=== PATIENT | female | born 1960 | race Caucasian/White ===

== ENCOUNTER → 2017-06-16 | Outpatient (CLI) | payer BC, SELFPAY | PROVIDERS: Family Provider Family Medicine; PCP Family Medicine; Visit Provider Family Medicine | DX: Z12.31 Encounter for screening mammogram for malignant neoplasm of breast (principal) | CPT/HCPCS: 77067; G0202 ==

== ENCOUNTER → 2020-02-24 08:03 | Outpatient (CLI) | payer BC, SELFPAY ==
--- NOTE | 2020-02-24 08:07 | MM_ITS ---
PROCEDURE: MM DIG SCREENING MAMM BI W/CAD Digital Breast Tomosynthesis Included CLINICAL INDICATION: SCREENING There is no personal or family history of breast cancer. COMPARISON: MG AB MAMM SCREEN BILAT DIG PNL from 06/01/2014 MG PB MAMM SCREEN BILAT DIG PNL from 06/12/2015 MG DMSB DIG MAMM-SCREEN RASHIDA W/CAD from 06/16/2017 TECHNIQUE: Standard CC and MLO images and 3D Tomosynthesis was obtained. R2 CAD reviewed. FINDINGS: Mild scattered fibroglandular densities are seen throughout both breast and the findings are bilateral and symmetrical. There is no new or suspicious lesion in either breast and no suspicious microcalcifications. IMPRESSION: Fibrofatty parenchyma with no suspicious lesions seen BI-RAD Category: 1 Negative FOLLOW-UP: 1YR 1 Year Follow-up (A letter has been sent to the patient regarding results of the study.) Dictated by: Dr. Gio Mack MD 02/24/2020 10:56 Dr. Gio Mack MD in [place] 02/24/2020 10:56
== END ==
PROVIDERS: PCP Family Medicine; Visit Provider Family Medicine
DX: Z12.31 Encounter for screening mammogram for malignant neoplasm of breast (principal)
CPT/HCPCS: 77063; 77067

== ENCOUNTER → 2021-04-28 09:14 | Outpatient (CLI) | payer BC, SELFPAY ==
[2021-04-28 10:03] LABS: Coronavirus 19, PCR Not Detected (NotDetected); Influenza A, PCR Not Detected (NotDetected); Influenza B, PCR Not Detected (NotDetected)
== END ==
PROVIDERS: PCP Family Medicine; Visit Provider Physician Assistant
DX: Z20.822 Contact with and (suspected) exposure to COVID-19 (principal)
CPT/HCPCS: C9803; U0003; U0005

== ENCOUNTER → 2021-05-01 13:23 | Outpatient (CLI) | payer BC, SELFPAY | PROVIDERS: PCP Psychiatry & Neurology Sleep Medicine; Visit Provider Nurse Practitioner | DX: Z20.822 Contact with and (suspected) exposure to COVID-19 (principal) ==

== ENCOUNTER → 2021-05-01 13:48 | Outpatient (CLI) | payer BC, SELFPAY ==
[2021-05-01 14:01] LABS: Coronavirus 19, PCR Not Detected (NotDetected); Influenza A, PCR Not Detected (NotDetected); Influenza B, PCR Not Detected (NotDetected)
== END ==
PROVIDERS: Visit Provider Nurse Practitioner
DX: Z20.822 Contact with and (suspected) exposure to COVID-19 (principal)
CPT/HCPCS: C9803; U0003; U0005

== ENCOUNTER → 2021-05-17 15:02 | Outpatient (CLI) | payer BC, SELFPAY ==
--- NOTE | 2021-05-17 15:06 | MM_ITS ---
PROCEDURE INFORMATION: Exam: MG Bilateral Screening 3D Mammography Exam date and time: 05/17/2021 3:06 PM Age: 60 years old Clinical indication: Encounter for screening mammogram for malignant neoplasm of breast TECHNIQUE: Imaging protocol: Bilateral screening tomosynthesis and 2D mammography including computer-aided detection (CAD) when performed. COMPARISON: 1. MG MM DIG SCREENING MAMM BI W/CAD 02/24/2020 8:19 AM 2. MG DMSB DIG MAMM-SCREEN RASHIDA W/CAD 06/16/2017 10:09 AM FINDINGS: MAMMOGRAPHY: Breast composition: The breast tissue is composed of scattered areas of fibroglandular density. Mass: None. Architectural distortion: None. Calcifications: No suspicious calcifications. Asymmetric density: None. Skin thickening: None. Axillary adenopathy: None. IMPRESSION: No mammographic evidence of malignancy. Annual screening is recommended unless otherwise clinically indicated. ASSESSMENT: BI-RADS Category 1: Negative
== END ==
PROVIDERS: PCP Family Medicine; Visit Provider Family Medicine
DX: Z12.31 Encounter for screening mammogram for malignant neoplasm of breast (principal)
CPT/HCPCS: 77063; 77067

== ENCOUNTER → 2021-05-23 15:40 | Outpatient (CLI) | payer BC, SELFPAY | PROVIDERS: PCP Physician Assistant; Visit Provider Physician Assistant | DX: Z20.822 Contact with and (suspected) exposure to COVID-19 (principal) | CPT/HCPCS: C9803; U0003; U0005 ==

== ENCOUNTER → 2021-05-25 08:05 | Outpatient (CLI) | payer BC, SELFPAY ==
[2021-05-25 08:40] LABS: Coronavirus 19, PCR Not Detected (NotDetected); Influenza A, PCR Not Detected (NotDetected); Influenza B, PCR Not Detected (NotDetected)
[2021-05-25 12:45] LABS: Basophils # 0.1 K/mm3 (0-0.2); Basophils % 0.6 % (0.1-2.0); Eosinophils # 0.4 K/mm3 (0.0-0.4); Eosinophils % 4.8 % (0.1-12.0); Hematocrit 42.6 % (37.0-47.0); Lymphocytes # 1.8 K/mm3 (0.7-4.5); Lymphocytes % 21.7 % (10-50); Mean Corpuscular HGB Conc 32.8 g/dL (31.8-35.4); Mean Corpuscular Hemoglobin 29.5 pg (27.0-31.2); Mean Corpuscular Volume 89.8 fl (81-99); Mean Platelet Volume 9.6 fl (7.4-10.4); Monocytes # 0.4 K/mm3 (0.1-1.0); Monocytes % 4.8 % (1.7-9.3); Neutrophils # 5.7 K/mm3 (1.8-7.8); Platelet Count 213 K/mm3 (142-424); Red Blood Count 4.74 M/mm3 (4.20-5.40); White Blood Count 8.4 K/mm3 (4.8-10.8)
== END ==
PROVIDERS: PCP Family Medicine; Visit Provider Family Medicine
DX: Z20.822 Contact with and (suspected) exposure to COVID-19 (principal)
CPT/HCPCS: 85025; C9803; U0003; U0005

== ENCOUNTER → 2021-05-28 08:08 | Outpatient (CLI) | payer BC, SELFPAY | PROVIDERS: PCP Family Medicine; Visit Provider Family Medicine | DX: Z20.822 Contact with and (suspected) exposure to COVID-19 (principal) | CPT/HCPCS: C9803; U0003; U0005 ==

== ENCOUNTER → 2021-05-31 14:23 | Outpatient (CLI) | payer BC, SELFPAY ==
[2021-05-31 14:45] LABS: Adenovirus,PCR Not Detected (NotDetected); Bordetella Pertussis Not Detected (NotDetected); Chlamydophila Pneumoniae, PCR Not Detected (NotDetected); Coronavirus 19, PCR Not Detected (NotDetected); Coronavirus 229E Not Detected (NotDetected); Coronavirus NL63 Not Detected (NotDetected); Coronavirus OC43 Not Detected (NotDetected); Coronovirus HKU1,PCR Not Detected (NotDetected); Human Metapneumovirus Not Detected (NotDetected); Influenza A, PCR Not Detected (NotDetected); Influenza AH1, 2009 Not Detected (NotDetected); Influenza AH1, PCR Not Detected (NotDetected); Influenza AH3,PCR Not Detected (NotDetected); Influenza B, PCR Not Detected (NotDetected); Mycoplasma Pneumoniae, PCR Not Detected (NotDetected); Parainfluenza 1, PCR Not Detected (NotDetected); Parainfluenza 2, PCR Not Detected (NotDetected); Parainfluenza 3, PCR Not Detected (NotDetected); Parainfluenza 4, PCR Not Detected (NotDetected); Respiratory Syncytial Virus Not Detected (NotDetected); Rhinovirus/Enterovirus Not Detected (NotDetected)
== END ==
PROVIDERS: PCP Family Medicine; Visit Provider Family Medicine
DX: Z20.822 Contact with and (suspected) exposure to COVID-19 (principal)
CPT/HCPCS: 87581; 87632; 87798; C9803; U0003; U0005

== ENCOUNTER → 2021-06-03 16:48 | Outpatient (CLI) | payer BC, SELFPAY ==
--- NOTE | 2021-06-03 17:03 | XR_ITS ---
PROCEDURE INFORMATION: Exam: XR Chest Exam date and time: 06/03/2021 5:03 PM Age: 60 years old Clinical indication: Screening exam; Other screening; Patient HX: Covid screening, chest pain. TECHNIQUE: Imaging protocol: XR of the chest. Views: 1 view. Total images: 1 COMPARISON: No relevant prior studies available. FINDINGS: Lungs: Low lung volumes. Pulmonary vasculature grossly normal. No gross pulmonary infiltrates or edema pattern. Minimal linear stranding in the lung bases, likely subsegmental atelectasis. Pleural spaces: No pleural effusion. No pneumothorax. Heart/Mediastinum: Heart size normal. No tracheal/mediastinal shift. Bones/joints: No acute osseous abnormalities are identified. IMPRESSION: 1. No acute thoracic process. No gross pulmonary infiltrates 2. Low lung volumes with mild linear subsegmental atelectasis in the lung bases.
[2021-06-03 18:01] LABS: Basophils # 0.1 K/mm3 (0-0.2); Basophils % 0.6 % (0.1-2.0); Eosinophils # 0.6 K/mm3 (0.0-0.4); Eosinophils % 2.9 % (0.1-12.0); Hematocrit 47.7 % (37.0-47.0); Hemoglobin 15.6 g/dL (12.2-16.2); Lymphocytes # 4.6 K/mm3 (0.7-4.5); Lymphocytes % 23.1 % (10-50); Mean Corpuscular HGB Conc 32.7 g/dL (31.8-35.4); Mean Corpuscular Volume 88.6 fl (81-99); Mean Platelet Volume 7.9 fl (7.4-10.4); Monocytes # 0.9 K/mm3 (0.1-1.0); Monocytes % 4.6 % (1.7-9.3); Neutrophils # 13.6 K/mm3 (1.8-7.8); Neutrophils % 68.8 % (37.0-80.0); Platelet Count 321 K/mm3 (142-424); Red Blood Count 5.39 M/mm3 (4.20-5.40); White Blood Count 19.8 K/mm3 (4.8-10.8)
[2021-06-03 18:09] LABS: D-Dimer 0.44 ug/mL (0.0-0.5)
[2021-06-03 18:18] LABS: MANUAL DIFFERENTIAL MANUAL DIFFERENTIAL (MANUAL DIFF)
[2021-06-03 19:10] LABS: Eosinophils % 1 % (0-3); Lymphocytes % 24 % (10-50); Monocytes % 7 % (2-9); Neutrophils % 68 % (42-76); Platelet Estimate Normal; Total Cells Counted 100
== END ==
PROVIDERS: PCP Family Medicine; Visit Provider Nurse Practitioner
DX: Z20.822 Contact with and (suspected) exposure to COVID-19 (principal)
CPT/HCPCS: 36415; 71045; 85007; 85025; 85378

== ENCOUNTER → 2021-06-06 11:16 | Outpatient (CLI) | payer BC, SELFPAY | PROVIDERS: PCP Family Medicine; Visit Provider Family Medicine | DX: Z20.822 Contact with and (suspected) exposure to COVID-19 (principal) | CPT/HCPCS: C9803; U0003; U0005 ==

== ENCOUNTER → 2021-10-18 08:06 | Outpatient (CLI) | payer BC, SELFPAY ==
--- NOTE | 2021-10-18 08:11 | CT_ITS ---
FINAL REPORT TECHNIQUE: After the administration of oral and intravenous contrast, axial images were obtained through the abdomen and pelvis by computed tomography. The study was performed with techniques to keep radiation dose as low as reasonably achievable, (ALARA). Individual dose reduction techniques using automated exposure control or adjustment of mA and/or kV according to the patient's size were employed. CLINICAL HISTORY: RIGHT UPPER QUADRANT PAIN FINDINGS: Abdomen: There is atelectasis in the lung bases. The liver parenchyma is mildly fatty infiltrated. The gallbladder is surgically absent. The spleen, pancreas, adrenals and kidneys appear unremarkable. The aorta is normal in caliber. There is no free fluid or adenopathy. Pelvis: The appendix is normal. The urinary bladder is unremarkable. There is no free fluid or adenopathy. The uterus lies eccentric to the right. IMPRESSION: No acute intra-abdominal process. Reviewed, Interpreted and Dictated by Pepe Choudhary MD Transcribed by Jean Pierre Garcia Authenticated by Pepe Choudhary MD on 10/18/2021 09:18:42 AM [facility]
== END ==
PROVIDERS: PCP Family Medicine; Visit Provider Family Medicine
DX: R10.11 Right upper quadrant pain (principal)
CPT/HCPCS: 74177; Q9967

== ENCOUNTER → 2021-11-25 11:36 | Outpatient (CLI) | payer BC, SELFPAY | PROVIDERS: PCP Family Medicine; Visit Provider Family Medicine | DX: U07.1 COVID-19 (principal) | CPT/HCPCS: C9803; U0003; U0005 ==

== ENCOUNTER → 2021-12-02 07:35 | Outpatient (CLI) | payer BC, SELFPAY ==
--- NOTE | 2021-12-02 | ECG_ITS ---
APPROVED REPORT Exam: Resting ECG HR:68 bpm ECG Measurements Heart Rate 68 AXES OH 164 P 45 QRSd 88 QRS -5 QT 358 T 54 QTc 376 Conclusion SINUS RHYTHM LEFT VENTRICULAR HYPERTROPHY AND ST-T CHANGE [VOLTAGE CRITERIA PLUS ST/T ABNORMALITY] ABNORMAL ECG UNCONFIRMED REPORT Electronically signed by : Yan Fragoso MD 12/03/2021 22:19:49
[2021-12-02 08:07] LABS: Basophils # 0.1 K/mm3 (0-0.2); Basophils % 1.2 % (0.1-2.0); Eosinophils # 0.4 K/mm3 (0.0-0.4); Eosinophils % 4.5 % (0.1-12.0); Hematocrit 43.5 % (37.0-47.0); Hemoglobin 14.3 g/dL (12.2-16.2); Lymphocytes % 25.8 % (10-50); Mean Corpuscular Hemoglobin 29.4 pg (27.0-31.2); Mean Platelet Volume 8.9 fl (7.4-10.4); Monocytes # 0.5 K/mm3 (0.1-1.0); Monocytes % 5.8 % (1.7-9.3); Neutrophils # 4.9 K/mm3 (1.8-7.8); Neutrophils % 62.7 % (37.0-80.0); Platelet Count 192 K/mm3 (142-424); Red Blood Count 4.88 M/mm3 (4.20-5.40); Red Cell Distribution Width 13.6 % (11.5-17.5); White Blood Count 7.9 K/mm3 (4.8-10.8)
[2021-12-02 08:43] LABS: Chloride 105 mmol/L (98-107); Sodium 137 mmol/L (136-145)
[2021-12-02 08:44] LABS: Potassium 4.3 mmoL/L (3.5-5.1)
[2021-12-02 08:46] LABS: Alanine Aminotransferase 58 U/L (12-78); Albumin/Globulin Ratio 1.5 (1.1-1.8); Alkaline Phosphatase 115 U/L (38-126); Anion Gap 11.3 mEq/L (5-15); Aspartate Amino Transferase 49 U/L (14-36); Bilirubin,Total 0.7 mg/dl (0.2-1.3); Blood Urea Nitrogen 13 mg/dl (7-17); Carbon Dioxide 25 mmol/L (22.0-30.0); Estimated Glomerular Filt Rate 125 ml/min (>60); GFR (African American) 152 ML/MIN (>60); Globulin 2.6 g/dL (1.3-3.2); Total Protein,Serum 6.6 g/dl (6.3-8.2)
[2021-12-02 08:47] LABS: Calcium 9.2 mg/dl (8.4-10.2); Glucose 285 mg/dl (74-100)
== END ==
PROVIDERS: PCP Family Medicine; Visit Provider Otolaryngology
DX: Z01.818 Encounter for other preprocedural examination (principal)
CPT/HCPCS: 36415; 80053; 85025; 93005

== ENCOUNTER → 2022-07-29 15:43 | Outpatient (CLI) | payer BC, SELFPAY ==
--- NOTE | 2022-07-29 15:46 | MM_ITS ---
PROCEDURE INFORMATION: Exam: MG Bilateral Screening 3D Mammography Exam date and time: 07/29/2022 3:46 PM Age: 61 years old Clinical indication: Screening. No family history of breast cancer. TECHNIQUE: Imaging protocol: Bilateral Screening tomosynthesis and 2D mammography including computer-aided detection (CAD) when performed. COMPARISON: 1. MG MM DIG SCREENING MAMM BI W/CAD 05/17/2021 3:00 PM 2. MG MM DIG SCREENING MAMM BI W/CAD 02/24/2020 8:19 AM 3. MG DMSB DIG MAMM-SCREEN RASHIDA W/CAD 06/16/2017 10:09 AM 4. MG PB MAMM SCREEN BILAT DIG PNL 06/12/2015 8:45 AM FINDINGS: MAMMOGRAPHY: Breast composition: There are scattered areas of fibroglandular density. Mass: None. Architectural distortion: None. Calcifications: No suspicious calcifications. Asymmetric density: None. Skin thickening: None. Axillary adenopathy: None. IMPRESSION: No mammographic evidence of malignancy. Annual screening is recommended unless otherwise clinically indicated. ASSESSMENT: BI-RADS Category 1: Negative
== END ==
PROVIDERS: PCP Family Medicine; Visit Provider Family Medicine
DX: Z12.31 Encounter for screening mammogram for malignant neoplasm of breast (principal)
CPT/HCPCS: 77063; 77067

== ENCOUNTER → 2022-08-28 17:46 | Outpatient (CLI) | payer BC, SELFPAY ==
--- NOTE | 2022-08-28 17:56 | XR_ITS ---
PROCEDURE INFORMATION: Exam: XR Chest Exam date and time: 08/28/2022 5:52 PM Age: 61 years old Clinical indication: Cough and shortness of breath; Patient HX: C/O chronic cough x 1 wk TECHNIQUE: Imaging protocol: Radiologic exam of the chest. Views: 2 views. COMPARISON: CR XR CHEST PORTABLE 06/03/2021 5:10 PM FINDINGS: Lungs: Unremarkable. No consolidation. Pleural spaces: Unremarkable. No pleural effusion. No pneumothorax. Heart/Mediastinum: Unremarkable. No cardiomegaly. Bones/joints: Unremarkable. IMPRESSION: No acute findings.
== END ==
LOC: RAD 17:47
PROVIDERS: PCP Family Medicine; Visit Provider Physician Assistant
DX: R06.02 Shortness of breath (principal); R05.9 Cough, unspecified
CPT/HCPCS: 71046

== ENCOUNTER → 2023-02-25 07:59 | Outpatient (CLI) | payer BC, SELFPAY ==
[2023-02-25 08:41] LABS: Coronavirus 19, PCR Not Detected (NotDetected); Influenza A, PCR Not Detected (NotDetected); Influenza B, PCR Not Detected (NotDetected)
== END ==
PROVIDERS: PCP Family Medicine; Visit Provider Physician Assistant
DX: Z20.822 Contact with and (suspected) exposure to COVID-19 (principal)
CPT/HCPCS: 87636

== ENCOUNTER 2023-10-21 09:00 | Outpatient (CLI) | payer BC, SELFPAY ==
--- NOTE | 2023-10-21 09:06 | MM_ITS ---
PROCEDURE INFORMATION: Exam: MG Bilateral Screening 3D Mammography Exam date and time: 10/21/2023 9:30 AM Age: 63 years old Clinical indication: Screening. No family history of breast cancer. TECHNIQUE: Imaging protocol: Bilateral Screening tomosynthesis and 2D mammography including computer-aided detection (CAD) when performed. COMPARISON: 1. MG MM DIG SCREENING MAMM BI W/CAD 07/29/2022 3:46 PM 2. MG MM DIG SCREENING MAMM BI W/CAD 05/17/2021 3:00 PM 3. MG MM DIG SCREENING MAMM BI W/CAD 02/24/2020 8:19 AM 4. MG DMSB DIG MAMM-SCREEN RASHIDA W/CAD 06/16/2017 10:09 AM FINDINGS: MAMMOGRAPHY: Breast composition: There are scattered areas of fibroglandular density. Mass: None. Architectural distortion: None. Calcifications: No suspicious calcifications. Asymmetric density: None. Skin thickening: None. Axillary adenopathy: None. IMPRESSION: No mammographic evidence of malignancy. Annual screening is recommended unless otherwise clinically indicated. ASSESSMENT: BI-RADS Category 1: Negative
--- NOTE | 2023-10-21 09:06 | XR_ITS ---
FINAL REPORT TECHNIQUE: Bone mineral density was calculated of the lumbar spine and hip. CLINICAL HISTORY: .POST MENOPAUSAL COMPARISON: None FINDINGS: Using L1-4, the bone mineral density of the spine is 1.181 g/cm2, corresponding to T-score of 1.2. Using the left hip, the bone mineral density of the femoral neck is 0.830 g/cm2, corresponding to a T-score of -0.3. Using the right hip, the bone mineral density of the femoral neck is 0.825 g/cm?, corresponding to a T-score of -0.2. NOTE: T-score: Standard deviation compared with peak bone mass of young adult mean. *Following the recommendations of the International Society of Bone densitometry, classification of hip BMD is based on the lower of two T-scores; total hip or femoral neck. IMPRESSION: Normal bone mineral density of the lumbar spine and bilateral hips. Reviewed, Interpreted and Dictated by Eryn Henry MD Transcribed by Sonal Montano Authenticated and [facility]
== END 2023-10-21 23:59 | disposition home or self-care (01) ==
LOC: RAD 09:01
PROVIDERS: PCP Family Medicine; Visit Provider Family Medicine
DX: Z12.31 Encounter for screening mammogram for malignant neoplasm of breast (principal); Z78.0 Asymptomatic menopausal state
CPT/HCPCS: 77063; 77067; 77080

== ENCOUNTER 2024-07-16 11:00 | Outpatient (CLI) | payer BC, SELFPAY ==
[2024-07-16 11:10] LABS: Adenovirus,PCR Not Detected (NotDetected); Bordetella Pertussis Not Detected (NotDetected); Chlamydophila Pneumoniae, PCR Not Detected (NotDetected); Coronavirus 19, PCR Not Detected (NotDetected); Coronavirus 229E Not Detected (NotDetected); Coronavirus NL63 Not Detected (NotDetected); Coronavirus OC43 Not Detected (NotDetected); Coronovirus HKU1,PCR Not Detected (NotDetected); Human Metapneumovirus Not Detected (NotDetected); Influenza A, PCR Not Detected (NotDetected); Influenza AH1, 2009 Not Detected (NotDetected); Influenza AH1, PCR Not Detected (NotDetected); Influenza AH3,PCR Not Detected (NotDetected); Influenza B, PCR Not Detected (NotDetected); Mycoplasma Pneumoniae, PCR Not Detected (NotDetected); Parainfluenza 1, PCR Not Detected (NotDetected); Parainfluenza 2, PCR Not Detected (NotDetected); Parainfluenza 3, PCR Not Detected (NotDetected); Parainfluenza 4, PCR Not Detected (NotDetected); Respiratory Syncytial Virus Not Detected (NotDetected); Rhinovirus/Enterovirus Not Detected (NotDetected)
== END 2024-07-16 23:59 | disposition home or self-care (01) ==
LOC: LAB 11:02
PROVIDERS: PCP Family Medicine; Visit Provider Family Medicine
DX: J06.9 Acute upper respiratory infection, unspecified (principal)
CPT/HCPCS: 87633

== ENCOUNTER 2024-10-26 15:47 | Outpatient (CLI) | payer BC, SELFPAY ==
--- OUTSIDE RECORDS SUMMARY | 2024-10-26 15:49 | XMS_ITS | Data Portability ---
Author Organization [facility] [place] [facility] Address [address] [facility] [place] [address] Care Team Providers Care Manufacturer'S Service Representative Name Role Phone Iwona GALVAN Primary Care Provider [phone] Assessment No assessment recorded. Plan of Treatment Reminders Order Date Submit Date Provider Last Modified By Organization Details Last Modified Time Details Appointments None recorded. Lab None recorded. Referral None recorded. Procedures None recorded. Surgeries None recorded. Imaging None recorded. Medication Orders ofloxacin 0.3 % ear drops 2021 [email or web address] [place] [address] Pharmacy [facility], [address] [facility] [address] [facility] [place], [place], [id number], 09:21:47 Patient TargetsNo targets recorded. Patient Instructions Encounter Date Encounter Id Patient Instructions Last Modified By Organization Details Last Modified Time 07/21/2017 [id number] . Her left ear t ube continues to function well and both tympanic membranes look clear and healthy. We will see her once a year but she will return sooner if symptoms worsen. Not available 07/21/2017 14:43:59 08/16/2019 [id number] 1. Left cerumenectomy- full risks, complications, and benefits of in-office procedure have been thoroughly discussed. Understanding was expressed, informed consent given, and we will proceed with the discussed in-office treatment plan. 2. F/u 1 year [email or web address] Not available 08/16/2019 14:24:10 Her left ear tub e is still in good position and functioning well. Cerumen and squamous debris buildup around the tube was cleaned today under the operating microscope. She has no evidence of cholesteatoma formation. Her eustachian tube dysfunction is well treated with the ear tube. I should see her yearly for routine exam and cleaning. She wears her hearing aid successfully. Not available 08/16/2019 14:27:31 09/17/2021 [id number] 1. Left ear ceru men removal- full risks, complications, and benefits of in-office procedure have been thoroughly discussed. Understanding was expressed, informed consent given, and we will proceed with the discussed in-office treatment plan. 2. Follow up 12 months for CI [email or web address] Not available 09/17/2021 13:24:19 She has chronic eustachian tube dysfunction of her left ear and her ear does well as long as her ear tube is functioning. She had a cerumen impaction occluding her ear tube and her ear was carefully cleaned and the operative microscope and her ear tube is still now in good position and functioning well. She should be able to wear her hearing aid again comfortably. I should see her once a year for routine ear exam and cleaning. Not available 09/17/2021 13:28:31 10/31/2021 [id number] 1. Rx- Ofloxacin ear drops- place 4 drops in the left ear bid x 7 days 2. Recommend Left T-Tube placement. Full risks, complications, and benefits of operative versus non-operative intervention have been thoroughly discussed. Understanding was expressed, informed consent given, and we will proceed with the discussed operative treatment plan. There were no questions for me at the end of the office visit. 3. F/u postoperatively [email or web address] Not available 10/31/2021 10:22:00 her left ear tub e has been in place since 2012 and is beginning to function poorly and she has evidence of mild chronic otitis media. I think it's reasonable to proceed with left ear tube replacement and I will again place a long-term T-tube because of her history of eustachian tube dysfunction and chronic otitis media with frequent acute exacerbations. We discussed surgery in detail today and we will schedule sometime after she is back from her vacation in November. Not available 10/31/2021 10:24:15 12/26/2021 [id number] 1. Ray hallpikes performed today negative bilaterally 2. Directed pt to perform Maria Teresa Maneuver should BPPV return 3. F/u in 6 months [email or web address] Not available 12/26/2021 09:56:04 she is doing wel l after left ear tube placement and her eustachian tube dysfunction symptoms have resolved. She is having what I think is intermittent benign positional vertigo and I did a Hallpike test today which was negative. I gave her instructions on performing an Maria Teresa maneuver at home if and when she has any recurrent symptoms. I will see her in 6 months for routine ear exam and cleaning. wayne Not available 12/26/2021 09:57:56 Reason for Referral None Reported. Results Created Date Observation Date Name Description Value Unit Range Abnormal Flag Note LastModifiedBy Organization Detail LastModifiedTime Result Notes None recorded. 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 30814337 Active 2014 From Automated Load;Provi semaj: Cheri Perdomo; Status: Active Not Available [facility] 6 01:03:36 Impacted cerumen 72292526 Active 2015 From Automated Load;Provi semaj: Sanna Mittal;St atus: Active Not Available [facility] 6 01:03:36 Eustachian tube disorder 27649500 Active 2015 From Automated Load;Provi semaj: Sanna Mittal;St atus: Active Not Available [facility] 6 01:03:36 Chronic pharyngiti s 786203 Active 2015 From Automated Load;Provi semaj: Sanna Mittal;St atus: Active Not Available [facility] 6 01:05:41 Conductive hearing loss 35360337 Active 2015 From Automated Load;Provi semaj: Hailee Egan;Stat us: Active Not Available [facility] 6 01:05:41 Problem Notes None recorded. Procedures Surgical History Date Name Laterality Status Provider Name and Address Organization Details Recorded Time 12/27/19 22 [place]-Hallpike completed April Stern [facility] 12/26/2021 09:53:25 12/07/19 22 TYMPANOSTOMY, TUBE INSERTION (SURG) completed Not Available [facility] 12/10/2021 15:06:45 09/18/19 22 Cerumen removal - Instruments, Unilateral completed Elena Charles [facility] 09/17/2021 13:21:58 08/16/19 20 Cerumen removal - Instruments, Unilateral completed Breanna Melgar [facility] 08/16/2019 14:20:28 Ears/Nose/Throat Surgery completed [facility] 07/21/2017 14:12:02 Cholecystectomy completed [facility] 07/21/2017 14:12:17 Back Surgery completed [facility] 07/21/2017 14:12:27 Imaging Results None recorded. Procedure Notes None recorded. Medical Equipment None Reported. Allergies Allergen ID Allergen Name Allergen Category Reaction Reaction Severity Criticality Documentation Date Start Date Code Code System Note Provider Name and Address Organization Details Recorded Time 600888 Fiorinal medicatio n Not available Not available Not available 05/15/20162012 53699 RxNorm Comme nt: Creat ed By: Vito asif;Cre ated Date: 2012 9:57: 06 AM; Not Available [facility] 6 11:27:40 236167 Levaquin medicatio n Not available Not available Not available 05/16/20162012 30583 2 RxNorm Comme nt: Creat ed By: Vito asif;Cre ated Date: 2012 9:57: 24 AM; Not Available [facility] 6 07:45:18 Medications Name Sig Start Date Stop Date Status Note LastModified by Organization Details LastModified Time metformin 500 mg tablet TAKE 1 EVERY MORNING AND 2 WITH EVENING MEAL 09/17 completed Not Available Not Available Not Available promethaz ine-DM 6.25 mg-15 mg/5 mL oral syrup TAKE 5 ML BY MOUTH EVERY 6 HOURS NEEDED FOR COUGH MAY CAUSE DROWSINE SS 10/31 completed Not Available Not Available Not Available prednison e 10 mg tablet TAKE THREE TABLETS BY MOUTH EVERY DAY FOR 2 DAYS, THEN TAKE TWO TABLETS EVERY DAY FOR 2 DAYS, THEN TAKE ONE TABLET EVERY DAY FOR 2 DAYS. -- FINISH ALL MEDICINE -- --TAKE WITH FOOD-- 12/26 completed Not Available Not Available Not Available doxycycli ne hyclate 100 mg capsule TAKE 1 CAPSULE BY MOUTH TWICE DAILY 10/31 completed Not Available Not Available Not Available azithromy maxime 250 mg tablet TAKE 2 TABLETS BY MOUTH ON DAY 1, THEN TAKE 1 TABLET DAILY ON DAYS 2-5 -- FINISH ALL MEDICINE -- 10/31 completed Not Available Not Available Not Available tizanidin e 4 mg tablet 10/31 completed Not Available Not Available Not Available fluconazo le 150 mg tablet 08/16 completed Not Available Not Available Not Available benzonata te 200 mg capsule TAKE ONE CAPSULE BY MOUTH THREE TIMES DAILY NEEDED FOR COUGH -SWALLOW WHOLE. DO NOT CRUSH OR CHEW- 10/31 completed Not Available Not Available Not Available valacyclo vir 1 gram tablet 08/16 completed Not Available Not Available Not Available ondansetr on HCl 4 mg tablet TAKE ONE TABLET BY MOUTH EVERY 8 HOURS NEEDED FOR NAUSEA AND VOMITING 10/31 completed Not Available Not Available Not Available moxifloxa maxime 400 mg tablet TAKE ONE TABLET BY MOUTH EVERY 24 HOURS FOR 10 DAYS -- FINISH ALL MEDICINE -- 10/31 completed Not Available Not Available Not Available promethaz ine 6.25 mg-codein e 10 mg/5 mL syrup TAKE 1 TEASPOON FUL BY MOUTH FOUR TIMES DAILY NEEDED FOR COUGH 10/31 completed Not Available Not Available Not Available ciproflox acin 500 mg tablet TAKE ONE TABLET BY MOUTH TWICE DAILY FOR 7 DAYS -- FINISH ALL MEDICINE -- 12/26 completed Not Available Not Available Not Available sulfameth oxazole 800 mg-trimet hoprim 160 mg tablet TAKE ONE TABLET BY MOUTH EVERY TWELVE HOURS FOR 7 DAYS -- FINISH ALL MEDICINE -- 10/31 completed Not Available Not Available Not Available tramadol 50 mg tablet 07/21 completed Not Available Not Available Not Available ofloxacin 0.3 % ear drops INSTILL 4 DROPS IN THE LEFT EAR TWICE DAILY FOR 7 DAYS 12/26 completed Not Available Not Available Not Available sulfaceta mide sodium 10 % eye drops INSTILL ONE DROP into affected eye(s) EVERY 4 HOURS 10/31 completed Not Available Not Available Not Available levothyro xine 50 mcg tablet Take 1 tablet every day by oral route. active Not Available Not Available No t Available cephalexi n 500 mg capsule TAKE 1 CAPSULE BY MOUTH 2 TIMES DAILY FOR 10 DAYS 10/31 completed Not Available Not Available Not Available oseltamiv ir 75 mg capsule 08/16 completed Not Available Not Available Not Available clotrimaz ole-betam ethasone 1 %-0.05 % topical cream APPLY TOPICALL Y TO THE AFFECTED AREAS TWICE DAILY DIRECTED active Not Available Not Available No t Available diclofena c sodium 75 mg tablet,de layed release 07/21 completed Not Available Not Available Not Available polyethyl johann glycol 3350 17 gram/dose oral powder 08/16 completed Not Available Not Available Not Available methylpre dnisolone 4 mg tablets in a dose pack TAKE RADHA Antoine TO PACKAGE INSTRUCT IONS --TAKE WITH FOOD-- -- FINISH ALL MEDICINE -- 10/31 completed Not Available Not Available Not Available albuterol sulfate HFA 90 mcg/actua tion aerosol inhaler INHALE TWO PUFFS BY MOUTH EVERY 6 HOURS AND NEEDED FOR SHORTNES S OF BREATH OR wheezing 10/31 completed Not Available Not Available Not Available Vitamin D2 1,250 mcg (50,000 unit) capsule 07/21 completed Medicati on Descript ion: ergocalc iferol; Route:or al; refills: 0 Not Available Not Available Not Available losartan 50 mg-hydroc hlorothia zide 12.5 mg tablet TAKE ONE TABLET BY MOUTH ONCE DAILY active Not Available Not Available No t Available brompheni ramine-ps eudoephed rine-DM 2 mg-30 mg-10 mg/5 mL oral syrup take 5 ML BY MOUTH FOUR TIMES DAILY NEEDED FOR cough 10/31 completed Not Available Not Available Not Available fluticaso ne propionat e 50 mcg/actua tion nasal spray,jarocho pension 2 SPRAYS IN EACH NOSTRIL ONCE DAILY active Not Available Not Available No t Available metformin ER 500 mg tablet,ex tended release 24 hr TAKE ONE TABLET BY MOUTH EVERY DAY IN THE MORNING AND TAKE TWO TABLETS IN THE EVENING active Not Available Not Available No t Available amoxicill in 875 mg-potass ium clavulana te 125 mg tablet 07/21 completed Not Available Not Available Not Available Miralax active Not Available Not Avail able Not Available diclofena c 1 % topical gel APPLY TOPICALL Y TO THE APPROPRI ATE AREA DIRECTED SEE ADMIN INSTRUCT IONS. APPLY TOPICALL Y TWICE DAILY 10/31 completed Not Available Not Available Not Available Vitamin D2 active Not Available Not Available Not Available Contour Next Test Strips 10/31 completed Not Available Not Available Not Available Linzess 145 mcg capsule TAKE 1 CAPSULE BY MOUTH EVERY MORNING BEFORE BREAKFAS T. active Not Available Not Available No t Available ICaps AREDS2 active Not Available Not Available Not Available Vitals Date Recorded Body weight Body mass index (BMI) Body height Body temperature Heart rate Systolic blood pressure Diastolic blood pressure Provider Name and Address Organization Details Last Updated DateTime 8 911412. 41 g 45.6 kg/m2 162.56 cm 98.5 [degF] 80 /min 120 mm[Hg] 80 mm[Hg] Lara Jorgeden [facility] 8 14:15:56 Date Recorded Body temperature Body height Body mass index (BMI) Body weight Systolic blood pressure Diastolic blood pressure Provider Name and Address Organization Details Last Updated DateTime 0 98 [degF] 160.02 cm 44.5 kg/m2 349190. 68 g 129 mm[Hg] 72 mm[Hg] Nena Draper [facility] 0 13:42:06 Date Recorded Body weight Body temperature Heart rate Oxygen saturation Oxygen saturation in Arterial blood by Pulse oximetry Systolic blood pressure Diastolic blood pressure Provider Name and Address Organization Details Last Updated DateTime 2 889343. 75 g 98.4 [degF] 57 /min 97 % 97 % 135 mm[Hg] 79 mm[Hg] Concepcion Johnston [facility] 2 13:06:38 Date Recorded Body weight Body mass index (BMI) Body height Oxygen saturation Oxygen saturation in Arterial blood by Pulse oximetry Heart rate Systolic blood pressure Diastolic blood pressure Provider Name and Address Organization Details Last Updated DateTime 2 048332. 65 g 43.9 kg/m2 162.56 cm 97 % 97 % 72 /min 136 mm[Hg] 77 mm[Hg] Keara Martin [facility] 2 09:27:36 Date Recorded Body height Body mass index (BMI) Body weight Body temperature Heart rate Systolic blood pressure Diastolic blood pressure Provider Name and Address Organization Details Last Updated DateTime 2 162.56 cm 43.8 kg/m2 181900. 45 g 97.9 [degF] 67 /min 145 mm[Hg] 76 mm[Hg] Suzanna Alves [facility] 2 09:22:08 Social History Question Answer Notes LastModified by Organizat ion Details LastModified Time Tobacco Smoking Status Never Smoker Lara Rivera [facility] 07/21/2017 14:11:47 What Is Your Level Of Alcohol Consumption? None Information not available 07/21/2017 What Was The Date Of Your Most Recent Tobacco Screening? 07/21/2017 Information n ot available 08/09/2019 How Much Tobacco Do You Smoke? No Information not available 07/21/2017 Sex: Unknown Functional Status None recorded. Mental Status None recorded. Family History Relationship Description Onset Age of this Age Resolved Age Notes LastModified by Organization Details LastModified Time Unspecified Relation Family history of malignant neoplasm [email or web address] Not available 14:11:09 Unspecified Relation Diabetes mellitus [email or web address] Not available 14:11:15 Unspecified Relation Heart disease gchristensen Not available 14:11:23 Unspecified Relation Family history of stroke gchristensen Not available 14:11:37 Unspecified Relation Disorder of thyroid gland gchristensen Not available 14:11:42 Son Hypertensive disorder gchristensen Not available 14:11:29 Medical History Condition Response Diabetes N Bleeding Disorder N Arthritis Y Anesthesia Complications N Cancer N Thyroid Problems Y Hypertension Y Gynecological HistoryNo gynecological history recorded. Obstetrics History GPAL:G 0 P 0 0 0 0 Immunizations Vaccine Type Date Status Note Provider Nam e and Address Organization Details Recorded Time COVID-19, mRNA, LNP-S, PF, 30 mcg/0.3 mL dose 07/10/[address] [facility] 09:28:46 COVID-19, mRNA, LNP-S, PF, 30 mcg/0.3 mL dose 07/31/2020 completed Suzanna jacobson [facility] 12/26/2021 09:29:06 COVID-19, mRNA, LNP-S, PF, 30 mcg/0.3 mL dose 04/18/2021 completed Suzanna jacobson [facility] 12/26/2021 09:29:17 Past Encounters Encounter ID Performer Location Encounter Start Date Encounter Closed Date Diagnosis/Indication Diagnosis SNOMED-CT Code Diagnosis ICD10 Code Diagnosis Note [id number] MD LINSEY NGUYEN [facility] [address] [facility] [place] [address] 07/21/2017 14:01:33 07/22/2017 13:17:06 Dysfunction of left eustachian tube 5324294612 122639 H69.92 Mixed cond uctive AND sensorineural hearing loss 18921485 H90.8 [id number] MD LINSEY NGUYEN [facility] [address] [facility] [place] [address] 08/16/2019 13:28:03 08/19/2019 12:27:02 Eustachian tube disorder 03096461 H69.92 Dysfunctio n of left eustachian tube 2792222048 185813 H69.92 t-tube in [address] upon exam 08/16/2019 Mixed cond uctive AND sensorineural hearing loss 65275850 H90.8 wears hearing aid in the left ear Impacted c erumen in left ear 9474336759 097403 H61.22 -debrided 08/16/2019 [id number] MD LINSEY NGUYEN [facility] [address] [facility] [place] [address] 09/17/2021 12:58:02 09/17/2021 14:07:47 Impacted cerumen in left ear 0089330081 714033 H61.22 -debrided 08/16/2019- cerumen removal 09/17/21 Eustachian tube disorder 08100948 H69.92 Dysfunctio n of left eustachian tube 9172448583 540680 H69.92 t-tube in [address] upon exam 08/16/2019 Mixed cond uctive AND sensorineural hearing loss 68468139 H90.8 wears hearing aid in the left ear [id number] MD LINSEY NGUYEN [facility]NT [address] [place] [address] 10/31/2021 09:12:01 10/31/2021 11:38:58 Dysfunction of left eustachian tube 6367226570 869865 H69.92 - retained T-tube (2012) Finding of hearing aid 296944267 Z97.4 Otorrhea of left ear 616 5475080 964941 H92.12 Acute left otitis media 114605412 H66.92 [id number] MD LINSEY NGUYEN [facility] [address] [place] [address] 12/26/2021 08:37:28 12/26/2021 10:16:03 Dysfunction of left eustachian tube 6267240520 795375 H69.92 - retained T-tube (12/06/21) Benign par oxysmal positional vertigo 339258153 H81.10 Health Concerns Section Related Observation LastModified by Organization Detai ls LastModified Time None Recorded Concern Status LastModified by Organization Details LastModified Time None Recorded Advance Directives Directive None Recorded Payers Insurance Date Sequence Insurance Name Policy Number Policy Chase Covered Member ID Chase Member ID Guarantor Name 01/02/2022 1 [id number] [employer] [id number] Wil[address] Coronel [id number] Alejandra Coronel Notes Date Note Type Note Provider Name and Address Organization Details Recorded Time 07/21/2017 text/html Alejandra returns t o follow up on her ears. She has a T-tube in her left ear. She has fullness in that ear but denies any other pain or discomfort. She has a left sided hearing aid that she tolerates well. SANNA MITTAL MD [facility] [place], [address], [facility] 07/21/2017 14:44:12 08/16/2019 text/html Alejandra returns i n follow up of eustachian tube dysfunction and possible cerumen impaction. She has a T-tube in her left ear. She has a left sided hearing aid that she tolerates well. She denies any otalgia or otorrhea. She does mention feeling some fullness in the ears likely related to her eustachian tube dysfunction and sinus drainage. MD [place], [address], [facility] 08/16/2019 14:27:37 09/17/2021 text/html Alejandra returns t o the office today following up on her ears. She was last seen in Jul 2019 and she still had a t-tube in place in the left ear. She reports that over the last week her left ear has been popping and cracking and it hurts when she puts her hearing aid in it. She has no complaints with her right ear. SANNA MITTAL MD [facility] [place], [address] 09/17/2021 13:28:37 10/31/2021 text/html Alejandra returns today in follow up of a retained left T-Tube (2012). She experienced vertigo when turning to her right. She did see her PCP since last seen, and was told her ear looked junky and treated with a round of Cipro as she had an URI. She always has moisture in her left ear which has become chronic. She denies acute pain and doing well otherwise SANNA MITTAL MD [facility] [place], [address], [facility] 10/31/2021 10:24:25 12/26/2021 text/html Alejandra returns today in follow up of s/p Left Tympanostomy tube placement from 12/06/21. Her ear feels much better since tube placement, but she continues to notice spinning when she turns her head to the right or if she elevates her head back. The spinning only lasts for a few seconds. She did use antibiotic ear drops for about a week after her T-Tube placement as directed. Alejandra is pleased with her T-Tube and has no further concerns. [place], [address], [facility] 12/26/2021 09:58:01 OBGyn Episode No OBEpisode recorded.
--- NOTE | 2024-10-26 15:50 | MM_ITS ---
PROCEDURE INFORMATION: Exam: MG Bilateral Screening 3D Mammography Exam date and time: 10/26/2024 3:53 PM Age: 64 years old Clinical indication: Screening examination TECHNIQUE: Imaging protocol: Bilateral Screening tomosynthesis and 2D mammography including computer-aided detection (CAD) when performed. COMPARISON: 1. MG MM DIG SCREENING MAMM BI W/CAD 10/21/2023 9:30 AM 2. MG MM DIG SCREENING MAMM BI W/CAD 07/29/2022 3:46 PM FINDINGS: MAMMOGRAPHY: Breast composition: There are scattered areas of fibroglandular density. Mass: None. Architectural distortion: None. Calcifications: No suspicious calcifications. Asymmetric density: None. Skin thickening: None. Axillary adenopathy: None. IMPRESSION: No mammographic evidence of malignancy. Annual screening is recommended unless otherwise clinically indicated. ASSESSMENT: BI-RADS Category 1: Negative.
== END 2024-10-26 23:59 | disposition home or self-care (01) ==
LOC: RAD 15:48
PROVIDERS: PCP Family Medicine; Visit Provider Family Medicine
DX: Z12.31 Encounter for screening mammogram for malignant neoplasm of breast (principal)
CPT/HCPCS: 77063; 77067

== ENCOUNTER 2025-04-27 08:55 | Outpatient (CLI) | payer BC, SELFPAY ==
--- OUTSIDE RECORDS SUMMARY | 2024-01-04 06:30 | XMS_ITS ---
Author Organization [facility] Address [address] [facility] [address] [place] [id number] Care Team Providers Care Risk Investigator Name Role Phone Iwona Junior Primary Care Provider [phone] Bharti Torres Unavailable [phone] Allergies Allergen (clinical drug ingredient) Drug/Non Drug Allergy documented on EMR Reaction Allergy Type Onset Date Status aspirin Aspirin Unknown Drug Allergy Active Zjtzfuoztb-SDS-Vaqgu in e Unknown Drug Allergy Active Levaquin Unknown Drug Allergy Active lisinopril Lisinopril Unknown Drug Allergy Activ e Results Component Value Reference Range Notes CBC Fingerstick (in house) Reviewed date:01/04/2024 12:51:52 PM Interpretation: Performing Lab: Notes/Report: wbc 7.9 3.5 - 10 lym 29.4% 15 - 50 mid 6.2% 2 - 15 gran 64.4% 35 - 80 rbc 5.24 3.5 - 5.5 hgb 14.6 11.5 - 16.5 hct 46.2 35 - 55 mcv 88.1 75 - 100 mch 27.9 25 - 35 mchc 31.7 31 - 38 plat 152 100 - 400 REASON FOR VISIT dizzy Medications Medication SIG (Take, Route, Frequency, Duration) Notes Start Date End Date Status Flonase Allergy Relief 50 MCG/ACT 2 spray(s) in each nostril once a day; Duration: 90 days Active Mounjaro 5 MG/0.5ML as directed Subcutaneous once a week 09/04/2023 Not-Taking Amoxicillin-Pot Clavulanate 875-125 MG 1 tablet Orally every 12 hrs; Duration: 10 day(s) 01/04/2024 Active Ondansetron HCl 4 MG 1 tablet Orally thr ee times a day as needed 11/02/2023 Active Levothyroxine Sodium 50 mcg TAKE ONE TABLET BY MOUTH EVERY DAY; Duration: 90 Active metFORMIN HCl ER 500 mg TAKE ONE Orally bid Active Losartan Potassium-HCTZ 50-12.5 MG TAKE ONE TABLET BY MOUTH EVERY DAY; Duration: 90 Active Meclizine HCl 25 MG 1 tablet as needed Orally every 8 hrs prn 11/02/2023 Active Clotrimazole-Betamethason e 1-0.05 % 1 application Externally Twice a day 04/13/2023 Active Eye Vitamins - as directed Orally Active Vitamin D3 50 MCG (2000 UT) 1 tablet Orally Once a day; Duration: 30 day(s) Active FreeStyle Master 2 Sensor - as directed every 14 days; Duration: 90 days 05/13/2023 Active Jardiance 10 MG 1 tablet Orally Once a day; Duration: 30 day(s) Active Vital Signs Weight 215.2 lbs 01/04/2024 Blood pressure systolic 123 mm Hg 01/04/20 24 Blood pressure diastolic 69 mm Hg 024 Heart Rate 49 /min 01/04/2024 Height 64 in 01/04/2024 BMI 36.93 kg/m2 01/04/2024 Encounters Encounter Location Date Provider Diagnosis [facility] [address] [id number] 01/04/2024 Bharti Torres Otitis media H66.90 and Dizziness R42 Assessments Encounter Date Diagnosis (ICD Code) Assessment Notes Treatment Notes Treatment Clinical Notes Section Notes 01/04/2024 Otitis media (ICD-10 - H66.90) 01/04/2024 Dizziness (ICD-10 - R42) Plan Of Treatment Medication Medication Name Sig Start Date Stop Date Notes Amoxicillin-Pot Clavulanate 875-125 MG 1 tablet Orally every 12 hrs; Duration: 10 day(s) 01/04/2024 Meclizine HCl 25 MG 1 tablet as needed O rally every 8 hrs prn 11/02/2023 Next Appt Details Follow Up: prn, Reason: Progress Notes * IGNACIO CORONELOB:1960 (64 yo F)Acc No.[id number]:01/04/2024 Progress Notes 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 Dizzy. * ROS: C ARDIOLOGY: no C hest pain. n o P alpitations. D ERMATOLOGY: no R lance. n o H cooper. U ROLOGY: no D ifficulty urinating. n o B lood in urine. * Medical History: T ype 2 diabetes, since about 2007, Hypertension, Hypothyroidism, COVID 19 vaccine Fe.Aug 2020, Pfizer. * Surgical History: c holecystectomy, Dr. Connelly , herniated disc, Dr. Wright 2005, ear tube lt Dr Mittal 2012, colonoscopy, 5 tubular adenomas, Dr. Orozco 08/2018, replace ear tube Dr Mittal 2021. * Hospitalization/Major Diagno stic Procedure: D jacqui Past Hospitalization. * Family History: F ather: , diagnosed with Diabetes, Hypertension, Heart Disease. M other: , diagnosed with Diabetes, Hypertension, Heart Disease, Stroke, Cancer. 1 brother(s) , 4 sister(s) . . Mom and sister with lung cancer; mother also had a stroke; father has black lung, diabetes and was an alcoholic with CAD. * Social History: C URRENT TOBACCO USE: No . C affeine: no, coffee once daily. Marital Status: . Alcohol: yes, occasional wine. Recreational drug use: no. Travel ouside [place]: Lived in [place], [place] * Medications: T aking Jardiance 10 MG Tablet 1 tablet Orally Once a day , Taking Clotrimazole-Betamethasone 1-0.05 % Cream 1 application Externally Twice a day , Taking Eye Vitamins - Capsule as directed Orally , Taking Vitamin D3 50 MCG (1999 UT) Tablet 1 tablet Orally Once a day , Taking FreeStyle Master 2 Sensor - Miscellaneous as directed every 14 days , Taking metFORMIN HCl ER 500 mg Tablet Extended Release 24 Hour TAKE ONE Orally bid , Taking Losartan Potassium-HCTZ 50-12.5 MG Tablet TAKE ONE TABLET BY MOUTH EVERY DAY , Taking Levothyroxine Sodium 50 mcg Tablet TAKE ONE TABLET BY MOUTH EVERY DAY , Taking Ondansetron HCl 4 MG Tablet 1 tablet Orally three times a day as needed , Taking Meclizine HCl 25 MG Tablet 1 tablet as needed Orally every 8 hrs , Taking Flonase Allergy Relief 50 MCG/ACT Suspension 2 spray(s) in each nostril once a day , Not-Taking Mounjaro 5 MG/0.5ML Solution Pen-injector as directed Subcutaneous once a week , Discontinued Bactrim DS 800-160 MG Tablet 1 tablet Orally Two times a day , Discontinued Sulfacetamide Sodium 10 % Solution 1 drop q 4 hours in affected eye every 4 hours , Discontinued Cipro 500 MG Tablet 1 tablet Orally every 12 hrs , Medication List reviewed and reconciled with the patient * Allergies: A spirin, Lisinopril, Levaquin, [id number]. Objective: * Vitals: W t:215.2, Temp:97.9, BP:123/69, HR:49, Nurse:jordy, Ht: 64, BMI:36.93. * Examination: G eneral Examination: General Appearance: NAD, appears healthy, alert, pleasant. H EENT: sclera and conjunctiva clear, PERRLA, right TM with fluid; left with ear tube in place and erythemic TM. O ral cavity: m ucosa moist and WNL, no erythema. N collin: supple, no lymphadenopathy. H eart: RRR 50/min. L ungs: CTAB A&P. N eurologic Exam: alert and oriented; dizziness apparent with movement of head. ? Assessment: * Assessment: 1. O titis media - H66.90 (Primary) S pecify :left 2 . D izziness - R42 Plan: * Treatment: Value Reference Range w bc 7.9 3.5 - 10 * l ym 29.4% 15 - 50 * m id 6.2% 2 - 15 * g ran 64.4% 35 - 80 * r bc 5.24 3.5 - 5.5 * h gb 14.6 11.5 - 16.5 * h ct 46.2 35 - 55 * m cv 88.1 75 - 100 * m ch 27.9 25 - 35 * m chc 31.7 31 - 38 * p lat 152 100 - 400 * TanishaNicole 01/04/2024 11:43:5 5 AM > , Provider reviewed results while patient in office.Bharti Torres 01/04/2024 12:51:58 PM > 2.?Dizziness? Refill Meclizine HCl Tablet, 25 MG, 1 tablet as needed, Orally, every 8 hrs prn, 30, Refills 1. ? * Procedure Codes: 3 6416 CAPILLARY BLOOD DRAW, 43422 CBC WITH AUTO DIFF * Follow Up: p rn * Images: Billing Information: * Visit Code: 30030 Office Visit, Est Pt., Level 3. * Procedure Codes: 85522 CAPILLARY BLOOD DRAW. 74790 CBC WITH AUTO DIFF. * Electronic signature of Yarely Torres APRN on 04/27/2025 at 09:10 AM EST Sign off status: Pending * Provider: MARISOL Xavier Date: 0 01/04/2024 Generated for Melisa apple/Danielle/eTshanonsmitting on: 1 06/27/2024 09:10 AM EST History and Physical Notes * Examination Category Sub-Category Detail Notes Category Not es General Examination HEENT: sclera and c onjunctiva clear, PERRLA, right TM with fluid; left with ear tube in place and erythemic TM Heart: RRR 50/min Lungs: CTAB A&P General Appearance: NAD, appears healthy , alert, pleasant Neurologic Exam: alert and oriented; dizziness apparent with movement of head Neck: supple, no lymphaden opathy Oral cavity: mucosa moist and WNL , no erythema
--- OUTSIDE RECORDS SUMMARY | 2024-04-01 06:00 | XMS_ITS ---
Author Organization [facility] Address [address] [facility] [address] [facility] [address] [place] [id number] Care Team Providers Care Freight Associate Name Role Phone Iwona Junior Primary Care Provider [phone] Allergies Allergen (clinical drug ingredient) Drug/Non Drug Allergy documented on EMR Reaction Allergy Type Onset Date Status aspirin Aspirin Unknown Drug Allergy Active Nnsbqvlwrx-VTI-Bdizh in e Unknown Drug Allergy Active Levaquin Unknown Drug Allergy Active lisinopril Lisinopril Unknown Drug Allergy Activ e Results Component Value Reference Range Notes Glycohemoglobin A1c (in hous e) Reviewed date:04/04/2024 10:00:43 AM Interpretation:5.5% Performing Lab: Notes/Report: 5.5% glycohemoglobin 5.5% 5 - 6.5 % P-Comprehensive Metabolic Pa kailyn (CMP) Reviewed date:04/04/2024 10:01:15 AM Interpretation:satisfactory Performing Lab: Notes/Report: Test performed by [facility] [address] [place] [address] , [address], [place] [address] Jose Barnhart MD, Erisa Attorney CLIA: [id number] Sodium 142 135-145 mmol/L Potassium 4.3 3.5-5.3 mmol/L Chloride 102 97-108 mmol/L CO2 28 22-32 mmol/L Glucose 101 65-99 mg/dL BUN 14 8-23 mg/dL Creatinine 0.73 0.50-1.00 mg/dL Calcium 9.6 8.6-10.4 mg/dL eGFR by Creatinine 92 >59 mL/min/1.73m2 Protein 6.8 6.0-8.3 g/dL Albumin 4.3 3.5-5.3 g/dL Alkaline Phosphatase 96 35-121 IU/L ALT (SGPT) 19 <5-47 IU/L AST (SGOT) 21 <5-40 IU/L Bilirubin, Total 0.4 <0.2-1.2 mg/dL A/G Ratio 1.7 1.1-2.5 P-Lipid Panel Reviewed date:04/04/2024 10:01:15 AM Interpretation:Normal Performing Lab: Notes/Report: Test performed by [facility] [address] [facility] , [address], [place] [address] Jose Barnhart MD, Erisa Attorney CLIA: [id number] Cholesterol 184 <200 mg/dL Triglycerides 88 <150 mg/dL HDL Cholesterol 61 >39 mg/dL Cholesterol / HDL Ratio 3.02 0.00-4.44 Ratio Non-HDL Cholesterol 123 <130 mg/dL LDL Cholesterol (Calculation) 105 <130 mg/dL LDL Cholesterol Levels* Less than 100 mg/dL Optimal 100 to 129 mg/dL Near Optimal/ Above Optimal 130 to 159 mg/dL Borderline High 160 to 189 mg/dL High 190 mg/dL and above Very High * Categories as recommended by the 2004 ATPIII guidelines LDL/HDL Ratio 1.7 <3.3 Ratio LDL Cholesterol Patient History Test Date: 09/04/2023 LDL Results: 92 Units: mg/dL % Change: - Test Date: 04/01/2024 LDL Results: 105 Units: mg/dL % Change: +14% P-TSH Reviewed date:04/04/2024 10:01:16 AM Interpretation:Normal Performing Lab: Notes/Report: Test performed by [facility] [address] [place], [place] [address] [address] , [address] , [place] [address] Jose Barnhart MD, Erisa Attorney CLIA: [id number] TSH 2.76 0.43-5.25 mU/L P-Microalbumin/Creatinine, R andom Urine Sample Reviewed date:04/04/2024 10:01:16 AM Interpretation:Normal Performing Lab: Notes/Report: Test performed by [facility] [address] [place], [place] [address] [address] , [address] , [place] [address] Jose Barnhart MD, Erisa Attorney CLIA: [id number] Albumin/Creatinine Ratio, Urine 7 0-30 ug/m g Microalbumin, Urine, Random 0.6 Creatinine, Urine 86.2 REASON FOR VISIT 6 mo Medications Medication SIG (Take, Route, Frequency, Duration) Notes Start Date End Date Status Clotrimazole-Betamethasone 1-0.05 % 1 application Externally Twice a day 04/13/2023 Active Jardiance 10 MG 1 tablet Orally Once a day; Duration: 30 day(s) Active Eye Vitamins - as directed Orally Active Flonase Allergy Relief 50 MCG/ACT 2 spray(s) in each nostril once a day; Duration: 90 days Active Mounjaro 5 MG/0.5ML 5 mg Subcutaneous on ce a week 02/03/2024 Active Losartan Potassium-HCTZ 50-12.5 MG TAKE ONE TABLET BY MOUTH EVERY DAY; Duration: 90 Active Levothyroxine Sodium 50 mcg TAKE ONE TAB LET BY MOUTH EVERY DAY; Duration: 90 Active metFORMIN HCl 500 MG 1 tablet with a mikel l Orally Once a day 04/01/2024 Active Vitamin D3 50 MCG (1999 UT) 1 tablet Ora lly Once a day; Duration: 30 day(s) Active FreeStyle Master 2 Sensor - as directed e very 14 days; Duration: 90 days 05/13/2023 Active Immunizations Vaccine Route Administration Date Status Comme nts Fluzone Quad (6months&older) IM Intramuscular 04/01/2024 Administered Problems Problem Type SNOMED Code ICD Code Onset Dates Problem Status W/U Status Risk Notes Problem Type II diabetes mellitus without complication (421874256) Type 2 diabetes mellitus without complication, without long-term current use of insulin (E11.9) Active confirmed Problem Hypertension (74867485) HTN (hypertension) (I10) Active confirmed Problem Pure hypercholesterolemia (818412770) Pure hypercholesterolemia (E78.00) Active confirmed Vital Signs Weight 204.4 lbs 04/01/2024 Blood pressure systolic 138 mm Hg 04/01/20 24 Blood pressure diastolic 78 mm Hg 024 Heart Rate 64 /min 04/01/2024 Height 64 in 04/01/2024 BMI 35.08 kg/m2 04/01/2024 Encounters Encounter Location Date Provider Diagnosis [facility] [address] [facility] [address] [id number] 04/01/2024 Iwona Junior Hypothyroidism 244.9 ; Type 2 diabetes mellitus without complication, without long-term current use of insulin E11.9 ; HTN (hypertension) I10 ; Pure hypercholesterolemia E78.00 and Encounter for immunization Z23 Assessments Encounter Date Diagnosis (ICD Code) Assessment Notes Treatment Notes Treatment Clinical Notes Section Notes 04/01/2024 Hypothyroidism (ICD- 10 - 244.9) 04/01/2024 Type 2 diabetes josr itus without complication, without long-term current use of insulin (ICD-10 - E11.9) 04/01/2024 HTN (hypertension) (ICD-10 - I10) 04/01/2024 Pure hypercholesterolemia (ICD-10 - E78.00) 04/01/2024 Encounter for immunization (ICD-10 - Z23) Plan Of Treatment Medication Medication Name Sig Start Date Stop Date Notes metFORMIN HCl 500 MG 1 tablet with a mikel l Orally Once a day 04/01/2024 metFORMIN HCl ER 500 mg 1 tab Orally Two times a day Next Appt Details Follow Up: 3 Months, Reason: Progress Notes * CLAIR CORONELEDOB:1960 (64 yo F)Acc No.[id number]:04/01/2024 Progress Notes 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 :1960 A ge:63 Y S ex:Female Date:04/01/2024 Address:[address] [place] [address], [id number] Subjective: * Chief Complaints: * 1 . 6 mo. * HPI: C ardiology: The pt is here for a check up on Hypertension, hyperlipidemia, Hypothyroidism and Diabetes. Pt states she is doing good and denies any new concerns. The [employer] Master 2 has been extremely helpful. A1c=5.5 today!. Denies : Chest Pain. D enies : Short of Breath. D enies : Dizziness. D enies : Palpitations. N eurology: Balance has improved with use of hearing aids!. * ROS: D ERMATOLOGY: no R lance. n o H cooper. G ASTROENTEROLOGY: no N ausea. n o V omiting. n o D iarrhea.? U ROLOGY: no D ifficulty urinating. n o B lood in urine. * Medical History: T ype 2 diabetes, since about 2007, Hypertension, Hypothyroidism, COVID 19 vaccine Fe.Aug 2020, [employer]. * Surgical History: c holecystectomy, Dr. Connelly , herniated disc, Dr. Wright 2005, ear tube lt Dr Mittal 2012, colonoscopy, 5 tubular adenomas, Dr. Orozco 08/2018, replace ear tube Dr Mittal 2021. * Family History: F ather: , diagnosed with Diabetes, Hypertension, Heart Disease. M other: , diagnosed with Diabetes, Hypertension, Heart Disease, Stroke, Cancer. 1 brother(s) , 4 sister(s) . . Mom and sister with lung cancer; mother also had a stroke; father has black lung, diabetes and was an alcoholic with CAD. Brother of Covid 19. * Social History: C URRENT TOBACCO USE: No . C affeine: no, coffee once daily. Marital Status: . Alcohol: yes, occasional wine. Recreational drug use: no. Travel ouside [place]: Lived in [place], [place]. * Medications: T aking Jardiance 10 MG Tablet 1 tablet Orally Once a day , Taking Clotrimazole-Betamethasone 1-0.05 % Cream 1 application Externally Twice a day , Taking Eye Vitamins - Capsule as directed Orally , Taking Vitamin D3 50 MCG (2000 UT) Tablet 1 tablet Orally Once a day , Taking FreeStyle Master 2 Sensor - Miscellaneous as directed every 14 days , Taking Levothyroxine Sodium 50 mcg Tablet TAKE ONE TABLET BY MOUTH EVERY DAY , Taking Flonase Allergy Relief 50 MCG/ACT Suspension 2 spray(s) in each nostril once a day , Taking Losartan Potassium-HCTZ 50-12.5 MG Tablet TAKE ONE TABLET BY MOUTH EVERY DAY , Taking Mounjaro 5 MG/0.5ML Solution Pen-injector 5 mg Subcutaneous once a week , Taking metFORMIN HCl ER 500 mg Tablet Extended Release 24 Hour 1 tab Orally Two times a day , Discontinued Meclizine HCl 25 MG Tablet 1 tablet as needed Orally every 8 hrs prn , Discontinued Ondansetron HCl 4 MG Tablet 1 tablet Orally three times a day as needed , Discontinued valACYclovir HCl 1 GM Tablet 2 tab Orally Two times a day , Discontinued Amoxicillin-Pot Clavulanate 875-125 MG Tablet 1 tablet Orally every 12 hrs , Medication List reviewed and reconciled with the patient * Allergies: A spirin, Lisinopril, Levaquin, Ofjemyffzl-MXM-Wiwycfqw. Objective: * Vitals: W t:204.4, Temp:97.9, BP:138/78, HR:64, Nurse:VICK, Ht: 64, BMI:35.08. * Examination: G eneral Examination: General Appearance: N AD. WEIGHED 247 A YEAR AGO. H EENT: u nremarkable. O ral cavity: n o lesions, mucosa moist and WNL, no erythema. N collin: s upple, no lymphadenopathy. C hest: n ormal shape and expansion. H eart: s inus bradycardia. L ungs: c lear to auscultation. A bdomen: soft and nontender, no organomegaly or masses, RUQ scar. N eurologic Exam: I ntact, gait normal. S kin: n ormal, no rash. P eripheral pulses: n ormal . B ack: mild dorsal kyphosis. E xtremities: n o leg edema. Assessment: * Assessment: 1. H ypothyroidism - 244.9 (Primary) 2 . T ype 2 diabetes mellitus without complication, without long-term current use of insulin - E11.9 3 . H TN (hypertension) - I10 4 . P ure hypercholesterolemia - E78.00 5 . E ncounter for immunization - Z23 Plan: * Treatment: Value Reference Range T SH 2.76 0.43-5.25 - mU/L * Alberto Coronel 04/04/2024 10 :00:58 AM >Patient informed of normal results. 2.?Type 2 diabetes mellitus without complication, without long-term current use of insulin? Stop metFORMIN HCl ER Tablet Extended Release 24 Hour, 500 mg, 1 tab, Orally, Two times a day;?Start metFORMIN HCl Tablet, 500 MG, 1 tablet with a meal, Orally, Once a day.?LAB: Glycohemoglobin A1c (in house) (Collection Date & Time - 04/01/2024)? 5.5%* Value Reference Range g lycohemoglobin 5.5% 5 - 6.5 % * Monica Raya 04/01/2024 8:15 :44 AM > Provider reviewed results while patient in office.Alberto Coronel 04/04/2024 10:00:21 AM > , Patient informed of normal results. 3.?HTN (hypertension)?LAB: P-Comprehensive Metabolic Panel (CMP) (Collection Date & Time - 04/01/2024 07:07 AM)?satisfactory* Value Reference Range A /G Ratio 1.7 1.1-2.5 - * A lbumin 4.3 3.5-5.3 - g/dL * A lkaline Phosphatase 96 35-121 - IU/L * A LT (SGPT) 19 <5-47 - IU/L * A ST (SGOT) 21 <5-40 - IU/L * B ilirubin, Total 0.4 <0.2-1.2 - mg/dL * B UN 14 8-23 - mg/dL * C alcium 9.6 8.6-10.4 - mg/dL * C hloride 102 97-108 - mmol/L * C O2 28 22-32 - mmol/L * C reatinine 0.73 0.50-1.00 - mg/dL * G lucose 101 H 65-99 - mg/dL * P otassium 4.3 3.5-5.3 - mmol/L * S odium 142 135-145 - mmol/L * P rotein 6.8 6.0-8.3 - g/dL * e GFR by Creatinine 92 >59 - mL/min/1.73m2 * Alberto Coronel 04/04/2024 10 :00:58 AM >Patient informed of normal results. ?LAB: P-Microalbumin/Creatinine, Random Urine Sample (Collection Date & Time - 04/01/2024 07:07 AM)?Normal* Value Reference Range A lbumin/Creatinine Ratio, Urine 7 0-30 - ug /mg * C reatinine, Urine 86.2 - mg/dL * M icroalbumin, Urine, Random 0.6 - mg/dL * Alberto Coronel 04/04/2024 10 :00:58 AM >Patient informed of normal results. 4.?Pure hypercholesterolemia?LAB: P-Lipid Panel (Collection Date & Time - 04/01/2024 07:07 AM)?Normal* Value Reference Range C holesterol / HDL Ratio 3.02 0.00-4.44 - Ratio * C holesterol 184 <200 - mg/dL * H DL Cholesterol 61 >39 - mg/dL * L DL Cholesterol (Calculation) 105 <130 - mg/d L * L DL/HDL Ratio 1.7 <3.3 - Ratio * N on-HDL Cholesterol 123 <130 - mg/dL * T riglycerides 88 <150 - mg/dL * Alberto Coronel 04/04/2024 10 :00:58 AM >Patient informed of normal results. * Immunizations: Fluzone Quad (6months&older) : 0.5 mL (Route: Intramuscular) given by VICK Bella on Left Deltoid (Encounter for immunization) * Follow Up: 3 Months * Images: Billing Information: * Visit Code: 45672 Office Visit, Est Pt., Level 4. * Procedure Codes: * Electronic signature of Iwona Junior MD on 04/27/2025 at 09:09 AM EST Sign off status: Pending * Provider: Iwona Junior M.D. Date: Generated for Printi ng/Farebeccag/eTransmitting on: 06/27/2024 09:09 AM EST History and Physical Notes * HPI (History of Present Illness) Category Sub-Category Detail Notes Category Not es Cardiology Short of Breath Chest Pain Palpitations Dizziness Examination Category Sub-Category Detail Notes Category Not es General Examination HEENT: unremarkable Heart: sinus bradycardia Lungs: clear to auscultatio n Abdomen: soft and nontender, no organomegaly or masses, RUQ scar Extremities: no leg edema General Appearance: NAD. WEIGHED 247 A Y EAR AGO Skin: normal, no rash Neurologic Exam: Intact, gait normal Neck: supple, no lymphaden opathy Oral cavity: no lesions, mucosa m oist and WNL, no erythema Peripheral pulses: normal Back: mild dorsal kyphosis Chest: normal shape and exp ansion
--- OUTSIDE RECORDS SUMMARY | 2024-07-16 05:30 | XMS_ITS ---
Author Organization [facility] Address [address] [facility] [address] [facility] [address] [place] [id number] Care Team Providers Care Stretching Machine Tender Frame Name Role Phone Iwona Junior Primary Care Provider Hung Payton Unavailable [phone] Allergies Allergen (clinical drug ingredient) Drug/Non Drug Allergy documented on EMR Reaction Allergy Type Onset Date Status aspirin Aspirin Unknown Drug Allergy Active Maltnjyibp-NIN-Wnuxi in e Unknown Drug Allergy Active Levaquin Unknown Drug Allergy Active lisinopril Lisinopril Unknown Drug Allergy Activ e Results Component Value Reference Range Notes Influenza Screen (in house) Reviewed date:07/16/2024 10:52:07 AM Interpretation:Negative Performing Lab: Notes/Report: Negative results neg CBC Fingerstick (in house) Reviewed date:07/16/2024 11:12:26 AM Interpretation: Performing Lab: Notes/Report: wbc 7.4 3.5 - 10 lym 25.9 15 - 50 mid 7.6 2 - 15 gran 66.5 35 - 80 rbc 5.54 3.5 - 5.5 hgb 15.6 11.5 - 16.5 hct 47.3 35 - 55 mcv 85.4 75 - 100 mch 28.1 25 - 35 mchc 32.9 31 - 38 plat 141 100 - 400 H-UPPER RESP, PCR Reviewed date:07/18/2024 09:07:21 AM Interpretation: Performing Lab: Notes/Report: Covid test (in house) Reviewed date:07/16/2024 11:12:58 AM Interpretation:Negative Performing Lab: Notes/Report: Negative Result: neg REASON FOR VISIT coughing and burning in nose and chest Medications Medication SIG (Take, Route, Frequency, Duration) Notes Start Date End Date Status Losartan Potassium-HCTZ 50-12.5 MG TAKE ONE TABLET BY MOUTH EVERY DAY; Duration: 90 Active metFORMIN HCl 500 MG 1 tablet with a mikel l Orally Two times a day 04/01/2024 Active Mounjaro 5 MG/0.5ML 5 mg Subcutaneous on ce a week 02/03/2024 Active FreeStyle Master 2 Sensor - as directed e very 14 days; Duration: 90 days 05/13/2023 Active Levothyroxine Sodium 50 mcg TAKE ONE TAB LET BY MOUTH EVERY DAY; Duration: 90 days Active Eye Vitamins - as directed Orally Active Vitamin D3 50 MCG (2000 UT) 1 tablet Ora lly Once a day; Duration: 30 day(s) Active Flonase Allergy Relief 50 MCG/ACT 2 spray(s) in each nostril once a day; Duration: 90 days Active Jardiance 10 MG 1 tablet Orally Once a day; Duration: 30 day(s) Active Clotrimazole-Betamethasone 1-0.05 % 1 application Externally Twice a day 04/13/2023 Active Vital Signs Weight 206.6 lbs 07/16/2024 Blood pressure systolic 126 mm Hg 07/16/19 25 Blood pressure diastolic 70 mm Hg 025 Heart Rate 62 /min 07/16/2024 Height 64 in 07/16/2024 BMI 35.46 kg/m2 07/16/2024 Encounters Encounter Location Date Provider Diagnosis [facility] [address] [facility] [address] [place] [address], [place] [id number] 07/16/2024 Hung Payton Acute URI J06.9 Assessments Encounter Date Diagnosis (ICD Code) Assessment Notes Treatment Notes Treatment Clinical Notes Section Notes 07/16/2024 Acute URI (ICD-10 - J06.9) Plan Of Treatment Next Appt Details Follow Up: via phone to repo rt test results, Reason: Progress Notes * IGNACIO KOOB:1960 (64 yo F)Acc No.[id number]:07/16/2024 Progress Notes 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 :1960 A ge:63 Y S ex:Female Date:07/16/2024 [address] [address], [id number] Pcp:Iwona Junior Subjective: * Chief Complaints: * 1 . Coughing and burning in nose and chest. * HPI: E NT/respiratory: 63 year old female presents with c/o cough P t presents today with c/o cough that is dry. Pt sts that she has some burning in the chest and nasal sinuses. Pt sts that her symptoms started last night but she woke up with worsening symptoms. * ROS: D ERMATOLOGY: no R lance. n o H cooper. G ASTROENTEROLOGY: no N ausea. n o V omiting. n o D iarrhea.? U ROLOGY: no D ifficulty urinating. n o B lood in urine. * Medical History: T ype 2 diabetes, since about 2007, Hypertension, Hypothyroidism, COVID 19 vaccine Jul.Aug 2020, [email or web address]. * Surgical History: c holecystectomy, Dr. Connelly , herniated disc, Dr. Wright 2005, ear tube lt Dr Mittal 2012, colonoscopy, 5 tubular adenomas, Dr. Orozco 08/2018, replace ear tube Dr Mittal 2021. * Family History: F ather: , diagnosed with Heart Disease, Diabetes, Hypertension. M other: , diagnosed with Diabetes, Hypertension, [...] use: no. Travel [place]uside [place]: Lived in [place], [place] * Medications: T aking Jardiance 10 MG Tablet 1 tablet Orally Once a day , Taking Clotrimazole-Betamethasone 1-0.05 % Cream 1 application Externally Twice a day , Taking Eye Vitamins - Capsule as directed Orally , Taking Vitamin D3 50 MCG (1999 UT) Tablet 1 tablet Orally Once a day , Taking Flonase Allergy Relief 50 MCG/ACT Suspension 2 spray(s) in each nostril once a day , Taking Losartan Potassium- HCTZ 50-12.5 MG Tablet TAKE ONE TABLET BY MOUTH EVERY DAY , Taking metFORMIN HCl 500 MG Tablet 1 tablet with a meal Orally Two times a day , Taking Mounjaro 5 MG/0.5ML Solution Pen-injector 5 mg Subcutaneous once a week , Taking FreeStyle Master 2 Sensor - Miscellaneous as directed every 14 days , Taking Levothyroxine Sodium 50 mcg Tablet TAKE ONE TABLET BY MOUTH EVERY DAY , Medication List reviewed and reconciled with the patient * Allergies: A spirin, Lisinopril, Levaquin, Roukrbnsgk-ROL-Cumlmsop. Objective: * Vitals: W t:206.6, Temp:97.7, BP:126/70, HR:62, O2 Sat:100% on RA, Nurse:DELON, Ht: 64, BMI:35.46. * Examination: E NT/Respiratory: General Appearance: N AD. E yes: P ERRLA, sclera clear. O ral cavity : erythema without exudate on pharynx. N collin : n o cervical lymphadenopathy. H eart : R RR, normal S1 S2. L ungs: c lear to auscultation bilaterally. Assessment: * Assessment: 1. Amish owens URI - J06.9 (Primary) Plan: * Treatment: Value Reference Range r esults neg * Silvia Schmidt 07/16/2024 10:5 1:54 AM > reviewed w/ pt in office ?LAB: CBC Fingerstick (in house) (Collection Date & Time - 07/16/2024)* Value Reference Range w bc 7.4 3.5 - 10 * l ym 25.9 15 - 50 * m id 7.6 2 - 15 * g ran 66.5 35 - 80 * r bc 5.54 3.5 - 5.5 * h gb 15.6 11.5 - 16.5 * h ct 47.3 35 - 55 * m cv 85.4 75 - 100 * m ch 28.1 25 - 35 * m chc 32.9 31 - 38 * p lat 141 100 - 400 * Silvia Schmidt 07/16/2024 10:3 2:38 AM > reviewed w/ pt in office ?LAB: Covid test (in house) (Collection Date & Time - 07/16/2024)?Negative* Value Reference Range R esult: neg * Silvia Schmidt 07/16/2024 11:1 2:50 AM > reviewed w/ pt in office ?LAB: H-UPPER RESP, PCR (Collection Date & Time - 07/18/2024)* see duplicate order * Procedure Codes: 3 6416 CAPILLARY BLOOD DRAW, [address] [place], [address] CBC WITH AUTO DIFF, 41874 Flu Test- Nasal Swab, Modifiers: QW , 23698 COVID TEST IN HOUSE, Modifiers: QW * Follow Up: v ia phone to report test results * Images: Billing Information: * Visit Code: 32909 Office Visit, Est Pt., Level 3. * Procedure Codes: 95116 CAPILLARY BLOOD [place]RAW. [address] [place]. [address] CBC WITH AUTO DIFF. 48391 Flu Test- Nasal Swab. Modifiers: QW 49336 COVID TEST IN HOUSE. Modifiers: QW * Electronic signature of Doreen Payton MD on 04/27/2025 at 09:10 AM EST Sign off status: Pending * Provider: German Payton M.D. Date: 0 07/16/2024 Generated for Melisa apple/Danielle/eTshanonsmitting on: 06/27/2024 09:10 AM EST History and Physical Notes * HPI (History of Present Illness) Category Sub-Category Detail Notes Category Not es ENT/respiratory cough Pt presents toda y with c/o cough that is dry. Pt sts that she has some burning in the chest and nasal sinuses. Pt sts that her symptoms started last night but she woke up with worsening symptoms Examination Category Sub-Category Detail Notes Category Not es ENT/Respiratory Oral cavity : erythema without exudate on pharynx Neck : no cervical lymphade nopathy Heart : RRR, normal S1 S2 Lungs: clear to auscultatio n bilaterally General Appearance: NAD Eyes: PERRLA, sclera clear
--- OUTSIDE RECORDS SUMMARY | 2024-08-15 11:15 | XMS_ITS ---
[facility] [address] [facility] [address] [place] [phone] Care Team Providers Care Power Technician Name Role Phone Iwona Junior Primary Care Provider Allergies Allergen (clinical drug ingredient) Drug/Non Drug Allergy documented on EMR Reaction Allergy Type Onset Date Status aspirin Aspirin Unknown Drug Allergy Active Tjngyfyrjj-WMX-Ibeld in e Unknown Drug Allergy Active Levaquin Unknown Drug Allergy Active lisinopril Lisinopril Unknown Drug Allergy Activ e Results Component Value Reference Range Notes Glycohemoglobin A1c (in hous e) Reviewed date:08/17/2024 09:41:12 AM Interpretation: Performing Lab: Notes/Report: glycohemoglobin 5.6% 5 - 6.5 % REASON FOR VISIT check up Medications Medication SIG (Take, Route, Frequency, Duration) Notes Start Date End Date Status metFORMIN HCl 500 MG 1 tablet with a mikel l Orally Two times a day 04/01/2024 Active FreeStyle Master 2 Sensor - as directed every 14 days; Duration: 90 days 05/13/2023 Active Levothyroxine Sodium 50 mcg TAKE ONE TABLET BY MOUTH EVERY DAY; Duration: 90 days Active Mounjaro 7.5 MG/0.5ML 7.5mg sub q once a week; Duration: 90 days 02/03/2024 Not-Taki ng Losartan Potassium-HCTZ 50-12.5 MG TAKE ONE TABLET BY MOUTH EVERY DAY; Duration: 90 Active Clotrimazole-Betamethason e 1-0.05 % 1 application Externally Twice a day 04/13/2023 Active Eye Vitamins - as directed Orally Active Vitamin D3 50 MCG (1999 UT) 1 tablet Orally Once a day; Duration: 30 day(s) Active Flonase Allergy Relief 50 MCG/ACT 2 spray(s) in each nostril once a day; Duration: 90 days Active Jardiance 10 MG 1 tablet Orally Once a day; Duration: 30 day(s) Active Problems Problem Type SNOMED Code ICD Code Onset Dates Problem Status W/U Status Risk Notes Problem Obese class II ([id number]) BMI 35.0-35.9,a dult (Z68.35) Active confirmed Vital Signs Weight 208.4 lbs 08/15/2024 Heart Rate 52 /min 08/15/2024 Height 64 in 08/15/2024 BMI 35.77 kg/m2 08/15/2024 Encounters Encounter Location Date Provider Diagnosis [facility] [address] [facility] [address] [place] [phone] 08/15/2024 Iwona Junior Type 2 diabetes mellitus without complication, without long-term current use of insulin E11.9 and BMI 35.0-35.9,adult Z68.35 Assessments Encounter Date Diagnosis (ICD Code) Assessment Notes Treatment Notes Treatment Clinical Notes Section Notes 08/15/2024 Type 2 diabetes mellitus without complication, without long-term current use of insulin (ICD-10 - E11.9) continue current therapy 08/15/2024 BMI 35.0-35.9,adult (ICD-10 - Z68.35) Plan Of Treatment Treatment Notes Assessment Notes Type 2 diabetes mellitus wit hout complication, without long-term current use of insulin continue current therapy Next Appt Details Follow Up: 3 Months, Reason: Progress Notes * CLAIR CORONELEDOB:1960 (64 yo F)Acc No.[id number]:08/15/2024 Progress Notes 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 :1960 A ge:63 Y S ex:Female Date:08/15/2024 Address:[address] [place] [address] [place], [place] Subjective: * Chief Complaints: * 1 . Check up. * HPI: C ardiology: The patient is here for a check up on Hypertension Hypothyroidism and Diabetes. Pt states she is doing good and denies any new concerns. Pt stopped the Monjaro due to cost. Denies : Chest Pain. D enies : Short of Breath. D enies : Dizziness. D enies : Palpitations. * ROS: D ERMATOLOGY: no R lance. n o H cooper. G ASTROENTEROLOGY: no N ausea. n o V omiting. n o D iarrhea.? U ROLOGY: no D ifficulty urinating. n o B lood in urine. * Medical History: T ype 2 diabetes, since about 2007, Hypertension, Hypothyroidism, COVID 19 vaccine Jul.Aug 2020, SocialF5. * Surgical History: c holecystectomy, Dr. Connelly , herniated disc, Dr. Wright 2005, ear tube lt Dr Mittal 2012, colonoscopy, 5 tubular adenomas, Dr. Orozco 08/2018, replace ear tube Dr Mittal 2021. * Family History: F ather: , diagnosed with Heart Disease, Diabetes, Hypertension. M other: , diagnosed with Stroke, Cancer, Diabetes, Hypertension, Heart Disease. 1 brother(s) , 4 sister(s) . . Mom and sister with lung cancer; mother also had a stroke; father had black lung, diabetes and was an alcoholic with CAD. Brother of Covid 19. * Social History: C URRENT TOBACCO USE: No . C affeine: no, coffee once daily. Marital Status: . Alcohol: yes, occasional wine. Recreational drug use: no. Travel [place]ide [place]: Lived in [place], [place] * Medications: T aking Jardiance 10 [...] each nostril once a day , Taking metFORMIN HCl 500 MG Tablet 1 tablet with a meal Orally Two times a day , Taking FreeStyle Master 2 Sensor - Miscellaneous as directed every 14 days , Taking Levothyroxine Sodium 50 mcg Tablet TAKE ONE TABLET BY MOUTH EVERY DAY , Taking Losartan Potassium-HCTZ 50-12.5 MG Tablet TAKE ONE TABLET BY MOUTH EVERY DAY , Not-Taking Mounjaro 7.5 MG/0.5ML Solution Auto-injector 7.5mg sub q once a week , Medication List reviewed and reconciled with the patient * Allergies: A spirin, Lisinopril, Levaquin, Iooixsoudc-MGC-Ldmhhdjw. Objective: * Vitals: W t:208.4, Temp:98.3, BP:000, HR:52, Nurse:CHINO, Ht: 64, BMI:35.77. * Examination: G eneral Examination: General Appearance: N AD.. H EENT: u nremarkable.?Oral cavity: n o lesions, mucosa moist and [...] o leg edema. Assessment: * Assessment: 1. T ype 2 diabetes mellitus without complication, without long-term current use of insulin - E11.9 (Primary) 2 . B MS 35.0-35.9,adult - Z68.35 Plan: * Treatment: Value Reference Range g lycohemoglobin 5.6% 5 - 6.5 % * Alberto Coronel 08/17/2024 9:4 0:19 AM > , Provider reviewed results while patient in office. Notes: continue current therapy?? * Procedure Codes: 3 6416 CAPILLARY BLOOD DRAW, 07583 GLYCATED HEMOGLOBIN TEST, Modifiers: QW * Follow Up: 3 Months * Images: Billing Information: * Visit Code: 65496 Office Visit, Est Pt., Level 4. * Procedure Codes: 46915 CAPILLARY BLOOD DRAW. 02043 GLYCATED HEMOGLOBIN TEST. Modifiers: QW * Electronic signature of Iwona Junior MD on 04/27/2025 at 09:09 AM EST Sign off status: Pending * Provider: Iwona Junior M.D. Date: 0 08/15/2024 Generated for Melisa apple/Danielle/Noahitting on: 1 06/27/2024 09:09 AM EST History and Physical [...] Extremities: no leg edema General Appearance: NAD. Skin: normal, no rash Neurologic Exam: Intact, gait normal Neck: supple, no lymphaden opathy Oral cavity: no lesions, mucosa m oist and WNL, no erythema Peripheral pulses: normal Back: mild dorsal kyphosis Chest: normal shape and exp ansion
--- OUTSIDE RECORDS SUMMARY | 2025-03-29 06:40 | XMS_ITS ---
Author Organization [facility] Address [address] [facility] [address] [facility] [address] [place] [id number] Care Team Providers Care Public Relations Senior Associate Name Role Phone Iwona Junior Primary Care Provider [phone] REASON FOR VISIT flu shot only Medications Medication SIG (Take, Route, Frequency, Duration) Notes Start Date End Date Status Eye Vitamins - as directed Orally Active Jardiance 10 MG 1 tablet Orally Once a day; Duration: 30 day(s) Active Mounjaro 7.5 MG/0.5ML 0.5 mL Subcutaneou s once a week; Duration: 30 days Active Losartan Potassium-HCTZ 50-12.5 MG TAKE ONE TABLET BY MOUTH EVERY DAY; Duration: 90 Active Vitamin D3 50 MCG (1999) 1 tablet Ora lly Once a day; Duration: 30 day(s) Active Fluticasone Propionate 50 MCG/ACT INSTILL 2 SPRAYS IN EACH NOSTRIL ONCE DAILY; Duration: 90 Active FreeStyle Master 3 Plus Sensor - replace sensor every 15 days; Duration: 90 days 11/22/2024 Active FreeStyle Master 3 Henderson - as directed; Duration: 90 days 11/22/2024 Active Levothyroxine Sodium 50 mcg TAKE ONE TAB LET BY MOUTH EVERY DAY; Duration: 90 Active metFORMIN HCl 500 MG 1 tablet with a mikel l Orally Two times a day; Duration: 90 days 04/01/2024 Active Clotrimazole-Betamethasone 1-0.05 % 1 application Externally Twice a day 04/13/2023 Active FreeStyle Master 2 Sensor - as directed e very 14 days; Duration: 90 days 05/13/2023 Active Immunizations Vaccine Route Administration Date Status Comme nts Fluzone Quad (6months&older) IM Intramuscular 03/29/2025 Administered Encounters Encounter Location Date Provider Diagnosis [facility] [address] [facility] [address] [facility] [address] [place] [id number] 03/29/2025 Iwona Junior Encounter for immunization Z23 Assessments Encounter Date Diagnosis (ICD Code) Assessment Notes Treatment Notes Treatment Clinical Notes Section Notes 03/29/2025 Encounter for immunization (ICD-10 - Z23) Plan Of Treatment No Information Progress Notes * CLAIR CORONELEDOB:1960 (64 yo F)Acc No.[id number]:03/29/2025 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 :1960 A ge:64 Y S ex:Female Date:03/29/2025 Address:[address] [place] [address], [id number] Subjective: * Chief Complaints: * 1 . Flu shot only. * Medical History: * Medications: T aking Jardiance 10 MG Tablet 1 tablet Orally Once a day , Taking Eye Vitamins - Capsule as directed Orally , Taking Vitamin D3 50 MCG (1999 UT) Tablet 1 tablet Orally Once a day , Taking FreeStyle Master 2 Sensor - Miscellaneous as directed every 14 days , Taking Clotrimazole-Betamethasone 1-0.05 % Cream 1 application Externally Twice a day , Taking metFORMIN HCl 500 MG Tablet 1 tablet with a meal Orally Two times a day , Taking FreeStyle Master 3 Henderson - Device as directed , Taking FreeStyle Master 3 Plus Sensor - Miscellaneous replace sensor every 15 days , Taking Fluticasone Propionate 50 MCG/ACT Suspension INSTILL 2 SPRAYS IN EACH NOSTRIL ONCE DAILY , Taking Levothyroxine Sodium 50 mcg Tablet TAKE ONE TABLET BY MOUTH EVERY DAY , Taking Losartan Potassium-HCTZ 50-12.5 MG Tablet TAKE ONE TABLET BY MOUTH EVERY DAY , Taking Mounjaro 7.5 MG/0.5ML Solution Auto-injector 0.5 mL Subcutaneous once a week , Medication List reviewed and reconciled with the patient Objective: * Vitals: Assessment: * Assessment: 1. E ncounter for immunization - Z23 (Primary) Plan: * Treatment: * Immunizations: Fluzone Quad (6months&older) : 0.5 mL (Route: Intramuscular) given by ELAN Vernon , Manager Stars on Right Deltoid (Encounter for immunization) * Images: Billing Information: * Visit Code: * Procedure Codes: * Electronic signature of Iwona Junior MD on 04/27/2025 at 09:09 AM EST Sign off status: Pending * Provider: Iwona Junior M.D. Date: Generated for Melisa apple/Danielle/Noahitting on: 06/27/2024 09:09 AM EST
--- OUTSIDE RECORDS SUMMARY | 2025-04-26 04:15 | XMS_ITS ---
Author Organization [facility] Address [address] [facility] [address] [facility] [address] [place] [id number] Care Team Providers Care Wire Bender Hand Name Role Phone Iwona Junior Primary Care Provider Cathy Akhtar Unavailable [phone] Allergies Allergen (clinical drug ingredient) Drug/Non Drug Allergy documented on EMR Reaction Allergy Type Onset Date Status aspirin Aspirin Unknown Drug Allergy Active Tbmozwpyff-RHT-Kosoo in e Unknown Drug Allergy Active Levaquin Unknown Drug Allergy Active lisinopril Lisinopril Unknown Drug Allergy Activ e Results Component Value Reference Range Notes CBC Venipuncture (in house) (Not yet reviewed by provider) Interpretation:Normal Performing Lab: Notes/Report: Normal wbc 7.3 3.5 - 10 lymph 27.1 15 - 50 mid 7.3 2 - 15 gran 65.6 35 - 80 rbc 5.52 3.5 - 5.5 hgb 15.7 11.5 - 16.5 hct 48.0 35 - 55 mcv 86.8 75 - 100 mch 28.4 25 - 35 mchc 32.7 31 - 38 platlet 191 100 - 400 Glycohemoglobin A1c (in hous e) (Not yet reviewed by provider) Interpretation:5.6% Performing Lab: Notes/Report: 5.6% glycohemoglobin 5.6% 5 - 6.5 % REASON FOR VISIT annual CPX Medications Medication SIG (Take, Route, Frequency, Duration) Notes Start Date End Date Status metFORMIN HCl 500 MG 1 tablet with a mikel l Orally Two times a day; Duration: 90 days 04/01/2024 Active Quantitative Medicine Master 3 [place] - as directed; Duration: 90 days 11/22/2024 Active FreeStyle Master 3 Plus Sensor - replace sensor every 15 days; Duration: 90 days 11/22/2024 Active Clotrimazole-Betamethasone 1-0.05 % 1 application Externally Twice a day 04/13/2023 Active Eye Vitamins - as directed Orally Active Vitamin D3 50 MCG (2000 UT) 1 tablet Ora lly Once a day; Duration: 30 day(s) Active Losartan Potassium-HCTZ 50-12.5 MG TAKE ONE TABLET BY MOUTH EVERY DAY; Duration: 90 Active Jardiance 10 MG 1 tablet Orally Once a day; Duration: 30 day(s) Active Mounjaro 7.5 MG/0.5ML 0.5 mL Subcutaneou s once a week; Duration: 30 days Active Fluticasone Propionate 50 MCG/ACT INSTILL 2 SPRAYS IN EACH NOSTRIL ONCE DAILY; Duration: 90 Active Levothyroxine Sodium 50 mcg TAKE ONE TAB LET BY MOUTH EVERY DAY; Duration: 90 Active Vital Signs Weight 213 lbs 04/26/2025 Blood pressure systolic 122 mm Hg 04/26/20 25 Blood pressure diastolic 72 mm Hg 025 Heart Rate 52 /min 04/26/2025 Height 64 in 04/26/2025 BMI 36.56 kg/m2 04/26/2025 Encounters Encounter Location Date Provider Diagnosis [facility] [address] [facility] [address] [phone] 04/26/2025 Cathy Hermilo Type 2 diabetes josr itus without complication, without long-term current use of insulin E11.9 ; HTN (hypertension) I10 ; Pure hypercholesterolemia E78.00 ; Hypothyroidism 244.9 ; Fatty liver K76.0 ; Vitamin D deficiency disease E55.9 ; Polyarthralgia M25.50 ; Other fatigue R53.83 ; Bradycardia R00.1 ; Pain in right hip M25.551 ; Pain in left hip M25.552 ; Pain in right knee M25.561 and Pain in left knee M25.562 Assessments Encounter Date Diagnosis (ICD Code) Assessment Notes Treatment Notes Treatment Clinical Notes Section Notes 04/26/2025 Type 2 diabetes josr itus without complication, without long-term current use of insulin (ICD-10 - E11.9) 04/26/2025 HTN (hypertension) (ICD-10 - I10) 04/26/2025 Pure hypercholesterolemia (ICD-10 - E78.00) 04/26/2025 Hypothyroidism (ICD- 10 - 244.9) 04/26/2025 Fatty liver (ICD-10 - K76.0) 04/26/2025 Vitamin D deficiency disease (ICD-10 - E55.9) 04/26/2025 Polyarthralgia (ICD- 10 - M25.50) 04/26/2025 Other fatigue (ICD-1 0 - R53.83) 04/26/2025 Bradycardia (ICD-10 - R00.1) 04/26/2025 Pain in right hip (ICD-10 - M25.551) 04/26/2025 Pain in left hip (IC D-10 - M25.552) 04/26/2025 Pain in right knee (ICD-10 - M25.561) 04/26/2025 Pain in left knee (ICD-10 - M25.562) Plan Of Treatment Pending Test Test Name Order Date X ray : Hip, bilateral 04/26/2025 CBC Venipuncture (in house) 04/26/2025 Glycohemoglobin A1c (in house) X RAY : KNEE, BILATERAL 04/26/2025 Holter Monitor- 48 hour 04/26/2025 P-Vitamin B12 04/26/2025 P-Comprehensive Metabolic Panel (CMP) P-Arthritis Panel, [facility] 04/26/2025 P-T4 Free (thyroxine) 04/26/2025 P-Lipid Panel 04/26/2025 P-TSH 04/26/2025 P-Vitamin D 25-Hydroxy 04/26/2025 Progress Notes * IGNACIO CORONELOB:1960 (64 yo F)Acc No.[id number]:04/26/2025 Physical Patient: ALBERTO CROWDER Provider: MISBAH Slade :1960 A ge:64 Y S ex:Female Date:04/26/2025 Address:[address] [place] [address], [id number] Pcp:Iwona Junior Subjective: * Chief Complaints: * 1 . annual CPX. * HPI: H PI: Patient is here today for a nnual checkup and labs. Pt came in this morning for labs. H ip/Thigh: c/o hip pain P t states she been having left hip pain and knee been going on for about a year. * ROS: D ERMATOLOGY: no R lance. n o H cooper. G ASTROENTEROLOGY: no N ausea. n o V omiting. n o D iarrhea.? U ROLOGY: no D ifficulty urinating. n o B lood in urine. * Medical History: T ype 2 diabetes, since about 2007, Hypertension, Hypothyroidism, COVID 19 vaccine Fe.Aug 2020, [employer]. * Surgical History: c holecystectomy, Dr. Connelly , herniated disc, Dr. Wright 2005, ear tube lt Dr Mittal 2012, colonoscopy, 5 tubular adenomas, Dr. Orozco 08/2018, replace ear tube Dr Mittal 2021. * Family History: F ather: , diagnosed with Hypertension, Diabetes, Heart Disease. M other: , diagnosed with Cancer, Hypertension, Diabetes, Stroke, Heart Disease. 1 brother(s) , 4 sister(s) [...] use: no. Travel ouside [place]: Lived in [place], [place]. * Medications: T aking Jardiance 10 [...] a day , Taking FreeStyle Master 3 [place]wood - Device as directed , Taking FreeStyle [...] 0.5 mL Subcutaneous once a week , Discontinued FreeStyle Master 2 Sensor - Miscellaneous as directed every 14 days , Medication List reviewed and reconciled with the patient * Allergies: A spirin, Lisinopril, Levaquin, Ylnwrnonco-YCY-Yniaevuj. Objective: * Vitals: W t: 213, Temp: 97.8, BP: 122/72, HR: 52, Nurse: pe, Ht: 64, BMI:36.56. * Examination: G eneral Examination: General Appearance: N AD. H EENT: u nremarkable, , tympanostomy tube in left ear. O ral cavity: n o lesions, mucosa moist and WNL, no erythema.?Neck: s upple, no lymphadenopathy. C hest: n ormal shape and expansion. H eart: R SR. L ungs: c lear to auscultation. A bdomen: b owel sounds present, soft and nontender. N eurologic Exam: I ntact, gait normal. S kin: n ormal, no rash. P eripheral pulses: n ormal (2+) bilaterally. E xtremities: n o leg edema. ? Assessment: * Assessment: 1. T ype 2 diabetes mellitus without complication, without long-term current use of insulin - E11.9 (Primary) 2 . H TN (hypertension) - I10 3 . P ure hypercholesterolemia - E78.00 4 . H ypothyroidism - 244.9 5 . F atty liver - K76.0 6 . V itamin D deficiency disease - E55.9 7 .?Polyarthralgia - M25.50 8 . O ther fatigue - R53.83 9 .?Bradycardia - R00.1 1 0. P ain in right hip - M25.551 1 1. Pain in left hip - M25.552 1 2. P ain in right knee - M25.561 1 3. P ain in left knee - M25.562 Plan: * Treatment: Value Reference Range g lycohemoglobin 5.6% 5 - 6.5 % * Raeganriley Suzette 04/26/2025 0 9:26:58 AM EST > Provider reviewed results while patient in office. 2.?HTN (hypertension)?LAB: CBC Venipuncture (in house) (Collection Date & Time - 04/26/2025)? Normal* Value Reference Range w bc 7.3 3.5 - 10 * l ymph 27.1 15 - 50 * m id 7.3 2 - 15 * g ran 65.6 35 - 80 * r bc 5.52 3.5 - 5.5 * h gb 15.7 11.5 - 16.5 * h ct 48.0 35 - 55 * m cv 86.8 75 - 100 * m ch 28.4 25 - 35 * m chc 32.7 31 - 38 * p latlet 191 100 - 400 * Raeganriley Suzette 04/26/2025 0 9:27:20 AM EST > Provider reviewed results while patient in office. 3.?Pure hypercholesterolemia?LAB: P-Lipid Panel4.?Hypothyroidism?LAB: P-T4 Free (thyroxine) ?LAB: P-TSH5.?Vitamin D deficiency disease?LAB: P-Vitamin D 25-Hydroxy6.?Polyarthralgia?LAB: P-Arthritis Panel, [facility]7.?Other fatigue?LAB: P-Vitamin B128.?Bradycardia?Imaging: Holter Monitor- 48 hour9.?Pain in right hip?Imaging: X ray : Hip, [id number].?Pain in left hip?Imaging: X ray : Hip, [id number].?Pain in right knee?Imaging: X RAY : KNEE, [id number].?Pain in left knee?Imaging: X RAY : KNEE, BILATERAL * Procedure Codes: 8 5025 CBC WITH AUTO DIFF, 09913 VENIPUNCT, ROUTINE*, 92056 CAPILLARY BLOOD DRAW, 41541 GLYCATED HEMOGLOBIN TEST, Modifiers: QW * Images: Billing Information: * Visit Code: * Procedure Codes: 69264 CBC WITH AUTO DIFF. 12475 VENIPUNCT, ROUTINE*. 80601 CAPILLARY BLOOD DRAW. 68949 GLYCATED HEMOGLOBIN TEST. Modifiers: QW * Electronic signature of MISBAH Nava on 04/27/2025 at 09:09 AM EST Sign off status: Pending * Provider: MISBAH Slade Date: 06/26/2024 Generated for Printi ng/Faxing/eTransmitting on: 06/27/2024 09:09 AM EST History and Physical Notes * HPI (History of Present Illness) Category Sub-Category Detail Notes Category Not es Hip/Thigh hip pain Pt states she be en having left hip pain and knee been going on for about a year HPI Patient is here today for annual checkup and labs. Pt came in this morning for labs Examination Category Sub-Category Detail Notes Category Not es General Examination HEENT: unremarkable , , tympanostomy tube in left ear Heart: RSR Lungs: clear to auscultatio n Abdomen: bowel sounds present , soft and nontender Extremities: no leg edema General Appearance: NAD Skin: normal, no rash Neurologic Exam: Intact, gait normal Neck: supple, no lymphaden opathy Oral cavity: no lesions, mucosa m oist and WNL, no erythema Peripheral pulses: normal (2+) bilatera lly Chest: normal shape and exp ansion
--- NOTE | 2025-04-27 09:03 | XR_ITS ---
FINAL REPORT CLINICAL HISTORY: Pain COMPARISON: None FINDINGS: LEFT HIP 3 views of the left hip and an AP pelvis view were obtained. No fracture is identified. There are mild degenerative facet changes of the lower lumbar spine. There is some SI joint sclerosis inferiorly. The hips are located bilaterally. There is mild spurring of the greater trochanters bilaterally. IMPRESSION: No acute abnormality identified. Reviewed, Interpreted and Dictated by Bradley Peck MD Transcribed by Ashlie Patrick Authenticated and [facility]
--- NOTE | 2025-04-27 09:03 | XR_ITS ---
FINAL REPORT CLINICAL HISTORY: Pain COMPARISON: None FINDINGS: RIGHT HIP 3 views of the right hip and an AP pelvis view were obtained. No fracture is identified. There are mild degenerative facet changes of the lower lumbar spine. The hips are located bilaterally. There is mild spurring of the greater trochanters bilaterally. IMPRESSION: No acute abnormality identified. Reviewed, Interpreted and Dictated by Bradley Peck MD Transcribed by Ashlie Patrick Authenticated and [facility]
--- NOTE | 2025-04-27 09:03 | XR_ITS ---
FINAL REPORT CLINICAL HISTORY: PAIN COMPARISON: None FINDINGS: Three views of the left knee were performed. There is a small joint effusion. There is normal alignment. There is moderate patellofemoral and medial compartment narrowing. There are small osteophytes involving all 3 compartments. There are no fractures identified. IMPRESSION: Small joint effusion and mild degenerative changes. Reviewed, Interpreted and Dictated by Bradley Peck MD Transcribed by Ashlie Patrick Authenticated and [facility]
--- NOTE | 2025-04-27 09:03 | XR_ITS ---
FINAL REPORT CLINICAL HISTORY: Pain COMPARISON: None FINDINGS: Three views of the right knee were performed. There is a trace joint effusion. There is normal alignment. There is moderate medial compartment narrowing. Minimal osteophytes are noted. There is evidence of old Nilson-Schlatter's disease involving the tibial tuberosity. There are multiple serpiginous densities in the medial knee consistent with varicosities. There are no fractures identified. IMPRESSION: Minimal degenerative changes. Venous varicosities. Reviewed, Interpreted and Dictated by Bradley Peck MD Transcribed by Ashlie Patrick Authenticated and [facility]
--- OUTSIDE RECORDS SUMMARY | 2025-04-27 09:10 | XMS_ITS | Clinical Summary ---
Author Organization [facility] Address [address] [place] [address] Care Team Providers Care Hot Braider Name Role Phone Kraig Junior MD Primary Care Provider [phone] Allergies Active Allergy Reactions Criticality Noted Date Comments Aspirin GI Intolerance 01/15/2016 Uaahmetsjq-Ieyzgcz-Gyyujsts GI Intolerance 12/21 Levofloxacin GI Intolerance 01/15/2016 Lisinopril Cough 01/15/2016 Medications Ergocalciferol (VITAMIN D2) 2000 units tablet Vitamin D2 Active polyethylene glycol (MIRALAX) powder Take 17 g by mouth 2 (Two) Times a Day. 578 g 5 05/04/20 18 Active clotrimazole-bet amethasone (LOTRISONE) 1-0.05 % cream Apply topically to the appropriate area as directed Every 12 (Twelve) Hours. 45 g 1 04/25/20 19 Active fluticasone (FLONASE) 50 MCG/ACT nasal spray 2 sprays by Each Nare route Daily. 1 bottle 3 08/16/19 20 Active losartan-hydroch lorothiazide (HYZAAR) 50-12.5 MG per tabletIndication s:Essential hypertension Take 1 tablet by mouth Daily. 90 tablet 3 04/10/20 20 Active levothyroxine (SYNTHROID, LEVOTHROID) 50 MCG tablet Take 1 tablet by mouth Daily. 90 tablet 3 06/05/20 20 Active metFORMIN (GLUCOPHAGE) 500 MG tablet Take 1 qam and 2 with evening meal 90 tablet 11 06/19/20 20 Active Mounjaro 5 MG/0.5ML solution pen-injector pen 09/13/19 24 Active linaclotide (Linzess) 145 MCG capsule capsule Take 1 capsule by mouth Every Morning Before Breakfast. Active empagliflozin (Jardiance) 10 MG tablet tablet Take 1 tablet by mouth Daily. Active estradiol (ESTRACE VAGINAL) 0.1 MG/GM vaginal creamIndications :Female dyspareunia Insert 1 gm intravaginally 1-3 times each week 1 each 12 10/18/19 25 Active Active Problems Problem Noted Date Diagnosed Date Cystocele with prolapse 09/09/2022 Overview (09/09/2022): Grade 2. Patient asymptomatic and does not desire intervention at this time. 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 01/15/2016 Hypertension 01/15/2016 Hypothyroidism 01/15/2016 Vitamin D deficiency 01/15/2016 Immunizations Immunization Administration Dates Next Due COVID-19 ([email or web address]) Purple Cap Monovalent 07/31/19 21,07/10/2020 Hepatitis B Adult/Adolescent IM 10/08/1998,03/22,02/20/1998 MMR 04/13/1998 Td (TDVAX) 02/20/1998 Tdap 06/13/2008 Zostavax 09/25/2020 Family History Medical History Relation Name Comments Diabetes Brother Mg Coronary artery disease Father Cameron Diabetes Father Cameron Hypertension Father Cameron Coronary artery disease Mother Susie Diabetes Mother Susie Hypertension Mother Susie Stroke Mother Susie Diabetes Sister Gillian Breast cancer Neg Hx Colon cancer Neg Hx Ovarian cancer Neg Hx Uterine cancer Neg Hx Relation Name Status Comments Brother Mg Father Cameron Mother Susie Sister Gillian Social History Tobacco Use Types Packs/Day Years Used Date Smoking Tobacco: Never Smokeless Tobacco: Never Tobacco Cessation:Counseling Given: Not Answered Alcohol Use Standard Drinks/Week Comments Yes 1 (1 standard drink = 0.6 oz pur e alcohol) rare Comments No Sex and Gender Information Value Date Recorded Sex Assigned at Not on file Legal Sex Female 12:04 PM EDT Gender Identity Not on file Sexual Orientation Not on file Last Filed Vital Signs Vital Sign Reading Time Taken Comments Blood Pressure 110/64 10/17/2024 7:59 AM EDT Pulse 94 12/25/2020 8:24 AM EDT Temperature 36.1 C (97 F) 12/25/2020 8:24 AM EDT Respiratory Rate 20 12/25/2020 8:24 AM EDT Oxygen Saturation 94% 12/25/2020 8:24 AM EDT Inhaled Oxygen Concentration - - Weight 94.8 kg (209 lb) 10/17/2024 7:59 AM EDT Height 162.6 cm (5' 4 ) 10/17/2024 7:59 AM EDT Body Mass Index 35.87 10/17/2024 7:59 AM EDT Plan of Treatment Upcoming Encounters Date Type Department Care Team (Late st Contact Info) Description 10/23/2025 1:00 PM EDT Office Visit [facility] [address] [phone] Alcon Ibarra MD [address] [facility] [address] [place] [address] Health Maintenance Due Date Last Done Comments Pneumococcal Vaccine 50+ (1 of 2 - PCV) 08/30/1979 COLOGUARD 2005 COLON CANCER SCREENING [address] COLONOGRAPHY 2005 FECAL OCCULT BLOOD TEST 2005 FIT Testing (1 year) 2005 HEMOGLOBIN A1C 08/30/2018 03/02/2018, 02/20, 02/10/2017, Additional history exists ANNUAL PHYSICAL 03/02/2019 03/02/2018 DIABETIC FOOT EXAM 03/02/2019 03/02/2018, 0 03/02/2018, 03/02/2018, Additional history exists URINE MICROALBUMIN-CREATININE RATIO (uACR) 03/02/2019 03/02/2018, 02/10/2017, 01/15/2016 DIABETIC EYE EXAM 01/30/2021 01/31/2020, , 02/01/2019, Additional history exists INFLUENZA VACCINE 01/20/2025 04/14/2022, 03/19/2021 PAP SMEAR 09/09/2025 09/09/2022, 1106/2015 (Patient-Reported (Performed Externally)), 12/20/2013, Additional history exists Annual Gynecologic Pelvic and Breast Exam 10/18/2025 10/17/2024 MAMMOGRAM 10/22/2025 10/23/2023, 12/2022, 07/29/2022, Additional history exists TDAP/TD VACCINES (4 - Td or Tdap) 01/14/2026 01/15/2016 (Declined), 06/13/2008, 02/20/1998 COLONOSCOPY 2028 2018, 02/02/2012 COLORECTAL CANCER SCREENING 2028 HEPATITIS C SCREENING Addressed 01/15/2016 (Decline d) Overridden with the intention of not completing the topic ZOSTER VACCINE Discontinued 03/19/2021, 09/25/2020 Procedures Procedure Name Priority Date/Time Associated Diagnosis Comments SCANNED - MAMMO 10/23/2023 LIQUID-BASED PAP SMEAR, [facility] ([facility]I,[facility]) Routine 09/09/2022 11:19 AM EDT Well woman exam with routine gynecological exam SCANNED - EYE EXAM 01/31/2020 SCANNED - COLONOSCOPY 2018 POCT GLYCOSYLATED HEMOGLOBIN (HGB A1C) Routine 03/02/2018 9:19 AM EDT Controlled type 2 diabetes mellitus without complication, without long-term current use of insulin from Last 3 Months or Most Recently Relevant to Health Maintenance Results * MAMMO Scan (10/23/2023) Anatomical Region Laterality Modality Other us Alcon Ibarra MD CHART REVIEW TABS Fin al Result * LIQUID-BASED PAP SMEAR, [facility] ([facility]) (09/09/2022 11:19 AM EDT) Reference Lab Report [facility] [address] [place] [address] or [phone] Suresh Groves M.D., Claim Investigator PATIENT NAME LABORATORY NO. [address] ALBERTO CORONEL [id number] AGE SEX SSN CLIENT REF # [id number] [id number] F [id number] REQUESTING Dereck [place] [address] ALCON IBARRA DATE COLLECTED DATE RECEIVED DATE REPORTED 09/09/2022 09/09/2022 09/10/2022 ThinPrep Pap with Cytyc Imaging DIAGNOSIS: Negative for intraepithelial lesion or malignancy Multiple factors can influence accuracy of Pap tests; therefore, screening at regular intervals is necessary for early cancer detection. COMMENT: Benign cellular changes associated with atrophy are present. SPECIMEN ADEQUACY: SATISFACTORY FOR EVALUATION Transformation zone is present. Partially obscuring inflammation is present. SOURCE OF SPECIMEN: CERVICAL/ENDOCERV ICAL SLIDES: 1 CLINICAL HISTORY: Well woman exam with routine gynecological exam, Menopausal HPV HR-HPV POOL: Negative The Aptima HPV assay is an in vitro nucleic acid amplification test for the qualitative detection of E6/E7 viral messenger RNA from 14 high risk types of HPV in cervical specimens. The high risk HPV types detected include: 16, 18, 31, 33, 35, 39, 45, 51, 52, 56, 58, 59, 66, 68 DOCUMENT IMAGING SPECIALIST: FREDERIC CALVO(ASCP) CPT CODES: 44053, 19749 09/10/2022 1:39 PM EDT [facility] ThinPrep Vial Collection / Unknown 09/09/2022 11:19 AM EDT 09/09/2022 11:19 AM EDT Alcon Ibarra MD PATHOLOGY/CYTOLOGY ORDER DHRUV Final Result [facility]
[address] [place] [address], * SCANNED - EYE EXAM (01/31/2020) Anatomical Region Laterality Modality Other Kaveh Yuan MD CHART REVIEW TABS Final Re sult * SCANNED - COLONOSCOPY (2018) Kaveh Yuan MD CHART REVIEW TABS Final Re sult * POC Glycosylated Hemoglobin (Hb A1C) (03/02/2018 9:19 AM EDT) Hemoglobin A1C 6.0 % [facility] Blood 03/02/2018 9:19 AM EDT us Cathie Hernandez DO POINT OF CARE TEST ORDERABLES F inal Result [facility]
[address] [place] [address], [place] [phone] from Last 3 Months or Most Recently Relevant to Health Maintenance Insurance [place] [id number] [facility] [employer] Member Subscriber Plan / Payer (Ef fective 2012-Present) Name:Alberto Coronel Relation to Subscriber:Spouse Name:WILBUR CORONEL Date of :1956 (Home) Address: [address] [place] [address] [place] [id number] Payer ID:[id number] (NAIC) Group ID:[id number] Type:Not on file Address: [address] [place] [address] Care Teams Hot Braider Relationship Specialty Start Date End Date Kraig Junior MD [address] [place] [place] [id number] PCP - General Family Medicine 07/31/20
--- OUTSIDE RECORDS SUMMARY | 2025-04-27 09:10 | XMS_ITS | Clinical Summary ---
Author Organization [facility] Address [address] [facility] [address] [place] [address] Phone Care Team Providers Care In Home Nanny Name Role Phone Status, Fax Unavailable Conditions or Problems Problem Name Problem Code Onset Date Status Entry Date Provider Comment Standard Description Annotate Ear pain, left 19532888 (SNOMED CT) Active 07/15 Brian Wong MD Otalgia Rash, skin 245073521 (SNOMED CT) Active 07/15 Brian Wong MD Eruption PSEUDOMONAS INFECTION 42351559 (SNOMED CT) Active Alexandra Magan Bacterial infection caused by Pseudomonas OTITIS MEDIA 24247434 (SNOMED CT) Active Alexandra Magan Otitis media MORBID OBESITY 385956588 (SNOMED CT) Active Brian Wong MD Morbid obesity MENINGITIS 5768028 (SNOMED CT) Inactive 02/10 Aimee W Meningitis MENINGITIS 4548069 (SNOMED CT) Removed 02/10 Wyatt Veloz MD Meningitis FACIAL PAIN 87807540 (SNOMED CT) Active 02/09 Gela Johnson Pain in face DIPLOPIA 86878741 (SNOMED CT) Active 02/09 Gela Johnson Diplopia DM 25645410 (SNOMED CT) Active 02/09 Gela Johnson Diabetes mellitus OTITIS EXTERNA 2720570 (SNOMED CT) Active 02/09 Gela Johnson Otitis externa BACTERIAL MENINGITIS 13658508 (SNOMED CT) Active 02/09 Gela Alex Bacterial meningitis CHRONIC MASTOIDITIS 49282525 (SNOMED CT) Active 02/09 Gela Alex Chronic mastoiditis Medications Medication Instructions Start Date Stop Date Generic Name NDC Provider DICLOFENAC SODIUM 75 MG TBEC 07/10 DICLOFENAC SODIUM 02192041072 Brian Wong MD HYDROCHLOROTHIAZIDE 12.5 MG TABS 07/10 HYDROCHLOROTHIAZIDE 00695854562 Brian Wong MD PROMETHAZINE HCL 12.5 MG SUPP 02/09 PROMETHAZINE HCL 16456226081 Brian Wong MD NEURONTIN 300 MG CAPS 02/09 GABAPENTIN 64190869880 Brian Wong MD LISINOPRIL 10 MG TABS 02/09 LISINOPRIL 81196375235 Brian Wong MD CEFEPIME HCL 2 GM INJECTION SOLUTION RECONSTITUTED 2 gms IV Q 8 hours/OPAT 02/04 CEFEPIME HCL 74459685246 Mahad Veloz PERCOCET 10-325 MG TABS 02/24 OXYCODONE-ACETAMINO PHEN 31247546889 Brian Wong MD FIRST-BXN MOUTHWASH MOUTH/THROAT SUSPENSION 02/09 DIPHENHYD-LIDOCAINE -NYSTATIN 30443804016 Brian Wong MD AMITRIPTYLINE HCL 10 MG TABS 02/09 AMITRIPTYLINE HCL 53402065848 Brian Wong MD CIPRODEX 0.3-0.1 % OTIC SUSPENSION 02/24 CIPROFLOXACIN-DEXAM ETHASONE 31038508495 Brian Wong MD MEDROL 4 MG TBPK Take as prescribed with tapering dose over 5 days 02/24 METHYLPREDNISOLONE 42903472140 Brian Wong MD CIPRODEX 0.3-0.1 % OTIC SUSPENSION 02/24 CIPROFLOXACIN-DEXAM ETHASONE 17272193751 Brian Wong MD PERCOCET 10-325 MG TABS 02/24 OXYCODONE-ACETAMINO PHEN 34269452608 Brian Wong MD PERCOCET 7.5-325 MG TABS 02/17 OXYCODONE-ACETAMINO PHEN 86925398694 Brian Wong MD LORTAB 7.5-500 MG ORAL TABLET 02/09 HYDROCODONE-ACETAMI NOPHEN 74308382069 Brian Wong MD MIRALAX 17 GM/SCOOP POWD 02/10 POLYETHYLENE GLYCOL 3350 45954256034 Wyatt Veloz MD IBUPROFEN 400 MG TABS 02/09 IBUPROFEN 49058333769 Wyatt Veloz MD HYDROCHLOROTHIAZIDE 12.5 MG TABS 02/09 HYDROCHLOROTHIAZIDE 68552084099 Wyatt Veloz MD FIRST-BXN MOUTHWASH MOUTH/THROAT SUSPENSION 02/09 DIPHENHYD-LIDOCAINE -NYSTATIN 08739260734 Anetra D Hardwick IBUPROFEN 400 MG TABS 02/09 IBUPROFEN 21573306381 Anetra D Hardwick NEURONTIN 300 MG CAPS 02/09 GABAPENTIN 00812541371 Anetra D Hardwick LISINOPRIL 10 MG TABS 02/09 LISINOPRIL 44168044746 Anetra D Hardwick AMITRIPTYLINE HCL 10 MG TABS 02/09 AMITRIPTYLINE HCL 37765648853 Anetra D Hardwick PROMETHAZINE HCL 12.5 MG SUPP 02/09 PROMETHAZINE HCL 18597892066 Anetra D Hardwick LORTAB 7.5-500 MG ORAL TABLET 02/09 HYDROCODONE-ACETAMI NOPHEN 39115186235 Anetra D Hardwick LEVOTHROID 50 MCG TABS 02/09 LEVOTHYROXINE SODIUM 39398073335 Anetra D Hardwick HYDROCHLOROTHIAZIDE 12.5 MG TABS 02/09 HYDROCHLOROTHIAZIDE 96753976046 Anetra D Hardwick FLONASE 50 MCG/ACT NASAL SUSPENSION 02/09 FLUTICASONE PROPIONATE 09294699611 Anetra D Hardwick CEFEPIME HCL 2 GM INJECTION SOLUTION RECONSTITUTED 2 gms IV Q 8 hours/OPAT 02/04 CEFEPIME HCL 10305646450 Sirisha Hou RN Medications Administered No information available. Allergies, Adverse Reactions, Alerts Allergy Name Reaction Description Start Date Severity Statu s Provider FIORINAL Critical Active Wyatt Painter MD LEVOFLOXACIN Moderate Active Anekiley Hardwick Results Date Name Value Unit Range Flag Description Lab Report: Culture Routine with Gram Stain CULTURE Specimen/Sourc e: Wound/ear culture, comment Office Visit: rm 2 SMOK STATUS never smoker Toba tobacco buyer smoking status Lab Report: CBC w Auto Diff [id number] 0.0 GE use only - for Link[employer]ic import when terms are not otherwise specified Lab Report: Manual Different ial RBC MORPH RBC morphology consistant with indices. RBC morphology ATYP LYMPHS 2 (?) % lymphocyt es, atypical as percent of blood leukocytes PMN BANDS 1 (?) % neutrophils , band form as percent of blood leukocytes Lab Report: Comprehensive Me tabolic Panel ANIONGAP 6 mmol/L 3-11 N anion gap, s taylor GFRC 82 mL/min/1 .73m2 Glomerular Filtration Rate Calculation ALBUMIN 4.5 g/dL 3.4-4.8 N Albumin [Mass/volume] in Serum or Plasma PROTEIN, TOT 7.4 g/dL 6.4-8.3 N Protein [Mass/volume] in Serum or Plasma BILI TOTAL 0.3 mg/dL 0.3-1.2 N Bilirubin. total [Mass/volume] in Serum or Plasma SGPT (ALT) 30 U/L 7-40 N Alanine aminotransferase [Enzymatic activity/volume] in Serum or Plasma SGOT (AST) 20 U/L 8-33 N Aspartate aminotransferase [Enzymatic activity/volume] in Serum or Plasma ALK PHOS 75 U/L 25-100 N Alkaline phosphatase [Enzymatic activity/volume] in Blood CALCIUM 9.7 mg/dL 8.7-10.4 N Calcium [Moles/volume] in Serum or Plasma CO2 25 mmol/L 20-31 N Carbon dioxid e, total [Moles/volume] in Venous blood CHLORIDE 109 mmol/L 98-107 H Chloride [Moles/volume] in Serum or Plasma POTASSIUM 4.3 mmol/L 3.4-5.4 N Potassium [Moles/volume] in Serum or Plasma SODIUM 140 mmol/L 136-145 N Sodium [Moles/volume] in Serum or Plasma CREATININE 0.8 mg/dL 0.6-1.3 N Creatinine [Mass/volume] in Serum or Plasma BUN 15 mg/dL 6-20 N Urea nitrogen [Mass/volume] in Serum or Plasma GLUCOSE SER 111 mg/dL 70-100 H Glucose [Mass/volume] in Serum or Plasma Office Visit: rm10 DIET SKIN GRADER yes Dietary management education, guidance, and counseling (procedure) Lab Report: CBC w Auto Diff IMM GRANU % 0.2 % 0.0-0.6 N Immature granulocytes/100 leukocytes in Blood BASOPHIL % 0.6 % 0.0-1.0 N Basophils/ 100 leukocytes in Blood by Manual count % EOS AUTO 3.5 % 0.0-3.0 H Eosinophil s/100 leukocytes in Blood by Automated count MONOCYTE BF 7.2 % 0.0-12.0 N monocyte s as percent of body fluid leukocytes LYMPHS % 33.5 % 24.0-44.0 N Lymphocyte s/100 leukocytes in Blood by Automated count PMN % 55.0 % 41.0-71.0 N Neutrophils /100 leukocytes in Blood by Automated count BASOABSOLMAN 0.05 K/MCL {Cells}/ uL 0.00-0.20 N basophils, absolute, manual EOS ABSLT 0.30 10*3/uL 0.10-0.30 N Eosinophi ls [#/volume] in Blood MONOCYTABMAN 0.61 K/MCL {Cells}/ uL 0.00-1.00 N monocytes, absolute, manual LYMPHSABSMAN 2.83 K/MCL {Cells}/ uL 0.60-4.80 N lymphocytes, absolute, manual ABS NEUTROPH 4.65 10*3/uL 1.50-8.30 N Neutro phils [#/volume] in Blood PLATELETS 282 10*3/mm3 150-450 N Platelets [#/volume] in Blood by Automated count RDW_ 13.4 11.3-14.5 N RDW, no uni ts MCHC 33.3 G/DL 32.0-36.0 N MCHC [Mass/ volume] by Automated count MCH 28.6 pg 27.0-31.0 N MCH [Entiti c mass] by Automated count MCV 85.8 fL 80.0-99.0 N MCV [Entiti c volume] by Automated count HCT 41.1 % 34.5-44.0 N Hematocrit [Volume Fraction] of Blood by Automated count HGB 13.7 g/dL 11.5-15.5 N Hemoglobin [Mass/volume] in Blood RBC 4.79 M/MCL 10*6/mm3 3.89-5.14 N Erythro cytes [#/volume] in Blood by Automated count WBC 8.46 10*3/mm3 3.50-10.8 0 N Leukocytes [#/volume] in Blood by Automated count Lab Report: C-Reactive Prote in CRPCARDRISK 1.400 mg/L 0.000-10. 0 N C reactive protein [Mass/volume] in Serum or Plasma Lab Report: ESR (Sed Rate) ESR 6 mm/h 0-30 N Erythrocyte sedimentation rate by Westergren method Office Visit: room 12 MEDS REVIEW Done Documenta tion of current medications (procedure) Plan of Care Type Date Detail Pending order PICC Removal Pending order Discontinue IV a ntibiotics Pending order Continue IV anti biotics Pending order Weekly Labs (Con tinue) Pending order Weekly PICC Line Care Pending order Continue IV anti biotics Pending order Weekly Labs (Con tinue) Pending order Weekly PICC Line Care Pending order CBC with Differe ntial Pending order CMP Pending order C- reactive prot ein Pending order Sedimentation Ra te (ESR) Pending order Continue IV anti biotics Pending order Weekly PICC Line Care Pending order Weekly Labs (Con tinue) Pending order CBC with Differe ntial Pending order CMP Pending order C- reactive prot ein Pending order Sedimentation Ra te (ESR) Pending order Continue IV anti biotics Pending order Weekly Labs (Con tinue) Pending order Weekly PICC Line Care Procedures Code Procedure Name Date Entry Date CPT-PICREM PICC Removal CPT-DC Discontinue IV antibiotics 2 CPT-ca Continue IV antibiotics 2012 CPT-cwl Weekly Labs (Continue) 03/03 CPT-wpc Weekly PICC Line Care 03/03 CPT-ca Continue IV antibiotics 2012 CPT-cwl Weekly Labs (Continue) 02/24 CPT-wpc Weekly PICC Line Care 02/24 CPT-69295 CBC with Differential 02/24 CPT-92929 CMP CPT-50299 C- reactive protein CPT-03668 Sedimentation Rate (ESR) 201 08/28/04 CPT-ca Continue IV antibiotics 2012 CPT-wpc Weekly PICC Line Care 02/17 CPT-cwl Weekly Labs (Continue) 02/17 CPT-27399 CBC with Differential 02/17 CPT-72871 CMP CPT-52458 C- reactive protein CPT-48723 Sedimentation Rate (ESR) 201 08/27/28 CPT-ca Continue IV antibiotics 2012 CPT-cwl Weekly Labs (Continue) 02/10 CPT-wpc Weekly PICC Line Care 02/10 Vital Signs Date Name Value Unit Description BMI (Body Mass Index) 46.83 kg/m2 Bod y Mass Index (Ratio) Body Temperature 97.7 [degF] temperat ure E&M BP Diastolic 72 mm[Hg] blood pressu re, diastolic BP Systolic 138 mm[Hg] blood pressur e, systolic Heart Rate 76 /min pulse rate Height 63 [in_us] height E&M Respiratory Rate 18 /min respirat ory rate E&M Weight Measured 263.4 [lb_av] weight E& M Weight Measured 263.4 [lb_av] weight E& M Immunizations No information available. Advance Directives No information available.
--- OUTSIDE RECORDS SUMMARY | 2025-04-27 09:10 | XMS_ITS | Patient Health Record ---
Author Organization [facility] Address [address] [facility] [address] [facility] [address] [place] [id number] Care Team Providers Care Riding Coach Name Role Phone Iwona Junior Primary Care Provider Hung Payton Unavailable [phone] Bharti Torres Unavailable [phone] Cathy Akhtar Unavailable [phone] Allergies Allergen (clinical drug ingredient) Drug/Non Drug Allergy documented on EMR Reaction Allergy Type Onset Date Status aspirin Aspirin Unknown Drug Allergy Active Garbfsemeb-QPO-Qjlmc in e Unknown Drug Allergy Active Levaquin Unknown Drug Allergy Active lisinopril Lisinopril Unknown Drug Allergy Activ e Results Component Value Reference Range Notes Glycohemoglobin A1c (in hous e) Reviewed date:08/17/2024 09:41:12 AM Interpretation: Performing Lab: Notes/Report: glycohemoglobin 5.6% 5 - 6.5 % CBC Venipuncture (in house) (Not yet reviewed [...] 5.6% glycohemoglobin 5.6% 5 - 6.5 % Mammogram Reviewed date:10/31/2024 10:55:36 AM Interpretation:Negative Performing Lab: Notes/Report: Negative result Negative Influenza Screen (in house) Reviewed date:07/16/2024 10:52:07 [...] Interpretation:Negative Performing Lab: Notes/Report: Negative Result: neg H-COVIDPANEL Reviewed date:07/18/2024 08:38:55 AM Interpretation:Negative Performing Lab: Notes/Report: No Is this the 1st COVID test for the patient? No Does the patient have COVID symptoms? Yes Is the patient employed in healthcare? No Is patient an [employer] employee? N Is patient currently hospitalized? No Is patient currently in ICU? No Date of Symptom onset Is patient a resident in a congregate care setting? No ADENOQIA Not Detected NotDetected CORONAHKU1 Not Detected NotDetected FJMXILKY19 Not Detected NotDetected EVUYR774X Not Detected NotDetected VPROSPH89 Not Detected NotDetected METAPNEUMO Not Detected NotDetected RHINOENTER Not Detected NotDetected INFLUAPCR Not Detected NotDetected FLUAH1 Not Detected NotDetected [id number] Not Detected NotDetected INFLUAH3 Not Detected NotDetected INFLUB Not Detected NotDetected PARAINFLU1 Not Detected NotDetected PARAINFLU2 Not Detected NotDetected PARAINFLU3 Not Detected NotDetected PARAINFLU 4 Not Detected NotDetected RSVPCR Not Detected NotDetected COVIDHMH Not Detected NotDetected Effective 02/12/21, Positive covid results will no longer be called to the ordering physician. Infection control and the physician?s office will continue to report positive covid results to the local Health Department as required. This assay is for in vitro diagnostic use under FDA Emergency Use Authorization only. Negative results do not preclude infection with SARS CoV 2 virus and should not be the sole basis of a patient treatment/management or public health decision. Follow up testing should be performed according to the current CDC recommendations. BORDPERT Not Detected NotDetected CHLAMYDPNEUM Not Detected NotDetected MYCOPLASM Not Detected NotDetected Reason For Referral No Information Medications Medication SIG (Take, Route, Frequency, Duration) Notes Start Date End Date Status metFORMIN HCl 500 MG 1 tablet with a mikel l Orally Two times a day; Duration: 90 days 04/01/2024 Active FreeStyle Master 3 [place] - as directed; Duration: 90 days 11/22/2024 Active FreeStyle Master 3 Plus Sensor - replace sensor every 15 days; Duration: 90 days 11/22/2024 Active Eye Vitamins - as directed Orally Active Vitamin D3 50 MCG (2000 UT) 1 tablet Ora lly Once a day; Duration: 30 day(s) Active Clotrimazole-Betamethasone 1-0.05 % 1 application Externally Twice a day 04/13/2023 Active Fluticasone Propionate 50 MCG/ACT INSTILL 2 SPRAYS IN EACH NOSTRIL ONCE DAILY; Duration: 90 Active Levothyroxine Sodium 50 mcg TAKE ONE TAB LET BY MOUTH EVERY DAY; Duration: 90 Active Losartan Potassium-HCTZ 50-12.5 MG TAKE ONE TABLET BY MOUTH EVERY DAY; Duration: 90 Active Jardiance 10 MG 1 tablet Orally Once a day; Duration: 30 day(s) Active Mounjaro 7.5 MG/0.5ML 0.5 mL Subcutaneou s once a week; Duration: 30 days Active Immunizations Vaccine Route Administration Date Status Comme nts COVID 19 Pfizer Unknown 07/10/2020 Administered COVID 19 Pfizer Unknown 07/31/2020 Administered COVID 19 Pfizer Unknown 04/18/2021 Administered Fluzone Quad (6months&older) IM Intramuscular 03/19/2021 Administered Fluzone Quad (6months&older) IM Intramuscular 04/14/2022 Administered Fluzone Quad (6months&older) IM Intramuscular 04/01/2024 Administered Fluzone Quad (6months&older) IM Intramuscular 03/29/2025 Administered Shingrix IM Intramuscular 09/25/2020 Administered Shingrix IM Intramuscular 03/19/2021 Administered Problems Problem Type SNOMED Code ICD Code Onset Dates Problem Status W/U Status Risk Notes Problem Hypertension (16397048) HTN (hypertension) (I10) Active confirmed Problem Hypothyroidism (56838808) Hypothyroidism (acquired) (E03.9) Active confirmed Problem Constipation (72542463) Constipation (K59.00) Active confirmed Problem Vitamin D deficiency (30876523) Vitamin D deficiency disease (E55.9) Active confirmed Problem Hordeolum internum o f right lower eyelid (169377675866689) Hordeolum internum of right lower eyelid (H00.022) Active confirmed Problem Acute cystitis (49490719) Acute cystitis without hematuria (N30.00) Active confirmed Problem Intertrigo (06056045) Intertrigo (L30.4) Active confirmed Problem Obese class II (509497483801224) BMI 35.0-35.9,adult (Z68.35) Active confirmed Problem Fatty liver (505712569) Fatty liver (K76.0) Active confirmed Problem Bronchitis (81598874) Bronchitis (J40) Active c onfirmed Problem Body mass index 40+ - morbidly obese (415521343) BMI 40.0-44.9, adult (Z68.41) Active confirmed Problem Allergic rhinitis caused by pollen (60023053) Seasonal allergic rhinitis due to pollen (J30.1) Active confirmed Problem Type II diabetes mellitus without complication (543357342) Type 2 diabetes mellitus without complication, without long-term current use of insulin (E11.9) Active confirmed Problem Pure hypercholesterolemia (011568274) Pure hypercholesterolemia (E78.00) Active confirmed Problem Otitis media (68503347) Chronic otitis media, unspecified otitis media type (H66.90) Active confirmed Problem Screening mammograph y (01972547) Screening mammogram for breast cancer (Z12.31) Active confirmed Problem Peripheral venous insufficiency (86729730) Chronic stasis dermatitis of right lower extremity (I87.2) Active confirmed Vital Signs Heart Rate 52 /min 04/26/2025 Blood pressure diastolic 72 mm Hg 04/26/2025 Height 64 in 04/26/2025 Blood pressure systolic 122 mm Hg 04/26/2025 Weight 213 lbs 04/26/2025 BMI 36.56 kg/m2 04/26/2025 Encounters Encounter Location Date Provider Diagnosis [facility] [address] [place] [id number] 07/16/2024 Hungdylon Cue[place] Acute URI J06.9 [facility] [address] [place], [place] [id number] 08/15/2024 Iwona Junior Type 2 diabetes josr itus without complication, without long-term current use of insulin E11.9 and BMI 35.0-35.9,adult Z68.35 [facility] [address] [place] [id number] 03/29/2025 Iwona Junior Encounter for immuni zation Z23 [facility] [address] [place], [place] [id number] 04/26/2025 Cathyevelia Akhtar Type 2 diabetes josr itus without complication, [...] M25.561 and Pain in left knee M25.562 [facility] [address] [place], [place] [id number] 04/27/2024 Cathyevelia Akhtar [facility] [address] [place], [place] [id number] 05/26/2024 Cathyevelia Akhtar [facility] [address] [place], [place] [id number] 08/08/2024 Bharti Torres [facility] [address] [place], [place] [id number] 09/01/2024 Cathy Akhtra [facility] [address] [facility] [address] [place], [place] [id number] 09/08/2024 Cathy Akhtar Chronic stasis derma titis of right lower extremity I87.2 [facility] [address] [place], [place] [id number] 09/26/2024 Bharti Torres [facility] [address] [facility] [address] [place], [place] [id number] 11/07/2024 Bharti Torres Type 2 diabetes mellitus without complication, without long-term current use of insulin E11.9 [facility] [address] [facility] [address] [place], [place] [id number] 11/17/2024 Iwona Junior [facility] [address] [facility] [address] [place], [place] [id number] 11/22/2024 Bharti Torres [facility] [address] [facility] [address] [place], [place] [id number] 12/20/2024 Bharti Torres [facility] [address] [facility] [address] [place], [place] [id number] 02/14/2025 Iwona Junior [facility] [address] [facility] [address] [place], [place] [id number] 04/17/2025 Iwona Junior Assessments Encounter Date Diagnosis (ICD Code) Assessment Notes Treatment Notes Treatment Clinical Notes Section Notes 07/16/2024 Acute URI (ICD-10 - J06.9) 08/15/2024 BMI 35.0-35.9,adult (ICD-10 - Z68.35) 08/15/2024 Type 2 diabetes josr itus without complication, without long-term current use of insulin (ICD-10 - E11.9) continue current therapy 09/08/2024 Chronic stasis dermatitis of right lower extremity (ICD-10 - I87.2) 11/07/2024 Type 2 diabetes josr itus without complication, without long-term current use of insulin (ICD-10 - E11.9) 03/29/2025 Encounter for immunization (ICD-10 - Z23) 04/26/2025 HTN (hypertension) (ICD-10 - I10) 04/26/2025 Type 2 diabetes josr itus without complication, without long-term current use of insulin (ICD-10 - E11.9) 04/26/2025 Pure hypercholesterolemia (ICD-10 - E78.00) 04/26/2025 [...] 04/26/2025 P-TSH 04/26/2025 P-Vitamin D 25-Hydroxy 04/26/2025 Insurance Providers Payer Name Payer Address Payer Phone Subscriber Number Group Number Insured Name Patient Relationship to Insured Coverage Start Date Coverage End Date REG [employer] [address] [place] [address] [id number] CORONEL Self - patient is the insured Medical (General) History Medical History History ICD Code type 2 diabetes, since about 2007 hypertension Hypothyroidism COVID 19 vaccine Aug 2020, Pfizer Surgical History Surgery Date(Month/Year) cholecystectomy, Dr. Connelly herniated disc, Dr. Wright [address] Mittal 2012 colonoscopy, 5 tubular adenomas, Dr. Emerita quiles 08/[address] Mittal 2021
--- OUTSIDE RECORDS SUMMARY | 2025-04-27 09:11 | XMS_ITS | Encounter Summary ---
[facility] Address [address] [place] [id number] Care Team Providers Care Field Superintendent Name Role Phone Kraig Junior MD Primary Care Provider [phone] Reason for Visit * Reason Comments Med Refill Encounter Details Date Type Department Care Team (Late Contact Info) Description 04/09/2020 Refill [facility] [address] [facility] [address] [place] [phone] Cathie Hernandez DO [address] [facility] [address] [place] [address] Essential hypertension Social History Tobacco Use Types Packs/Day Years Used Date Smoking Tobacco: Never Smokeless Tobacco: Never Alcohol Use Standard Drinks/Week Comments No 0 (1 standard drink = 0.6 oz pur e alcohol) Comments No Sex and Gender Information Value Date Recorded Sex Assigned at Not on file Legal Sex Female 12:04 PM EDT Gender Identity Not on file Sexual Orientation Not on file documented as of this encounter Plan of Treatment Upcoming Encounters Date Type Department Care Team (Late Contact Info) Description 10/23/2025 1:00 PM EDT Office Visit [facility] [address] [facility] [address] [place] [address] Tracie Ibarra MD [address] [facility] [address] [place] [address] documented as of this encounter Visit Diagnoses Diagnosis Essential hypertension Unspecified essential hypertension documented in this encounter Additional Health Concerns Infection Onset Date Last Indicated Resolved Time COVID (rule out) 12/25/2020 12/25/2020 01/01/2021 9:08 PM EDT documented as of this encounter Care Teams Field Superintendent Relationship Specialty Start Date End Date Kraig Junior MD [address] [facility] [address] [facility] [address] [place] [address] PCP - General Family Medicine 07/31/20 documented as of this encounter
== END 2025-04-27 23:59 | disposition home or self-care (01) ==
LOC: RT 08:57
PROVIDERS: PCP Family Medicine; Visit Provider Physician Assistant
DX: M17.11 Unilateral primary osteoarthritis, right knee (principal); M17.12 Unilateral primary osteoarthritis, left knee; I83.91 Asymptomatic varicose veins of right lower extremity; M25.551 Pain in right hip; M25.552 Pain in left hip; R00.1 Bradycardia, unspecified
CPT/HCPCS: 73502; 73562; 93225; 93227

== ENCOUNTER 2025-05-31 10:20 | Outpatient (CLI) | payer BC, SELFPAY ==
--- NOTE | 2025-05-31 10:23 | XR_ITS ---
FINAL REPORT TECHNIQUE: Left hand 3 views CLINICAL HISTORY: +RF CONCERN FINDINGS OF EARLY RA COMPARISON: None FINDINGS: LEFT HAND: 3 images of the left hand were obtained. There is no evidence of fracture or dislocation. Mild hypertrophic changes present involving the basilar joint. No bony erosions or periosteal reaction are noted. There are mild osteoarthritic changes involving the DIP joints. There is no soft tissue abnormality identified. IMPRESSION: Mild osteoarthritic changes involving the basilar joint and the DIP joints. No bony erosions or periosteal reaction are identified. Reviewed, Interpreted and Dictated by Pepe Choudhary MD Transcribed by Sonal Montano Authenticated and [facility]
--- NOTE | 2025-05-31 10:23 | XR_ITS ---
FINAL REPORT TECHNIQUE: Right hand 3 views CLINICAL HISTORY: hand pain COMPARISON: None FINDINGS: RIGHT HAND: 3 images of the right hand were obtained. There is no evidence of fracture or dislocation. There is mild hypertrophic change involving the basilar joint. No bony erosions are identified. There are no regions of periosteal reaction. Mild distal interphalangeal joint changes of osteoarthritis are noted. There is no soft tissue abnormality identified. IMPRESSION: Mild hypertrophic change at the basilar joint and mild changes of osteoarthritis at the DIP joints. No bony erosions or regions of periosteal reaction are present. Reviewed, Interpreted and Dictated by Pepe Choudhary MD Transcribed by Sonal Montano Authenticated and [facility]
== END 2025-05-31 23:59 | disposition home or self-care (01) ==
LOC: RAD 10:21
PROVIDERS: PCP Family Medicine; Visit Provider Internal Medicine Rheumatology
DX: M19.042 Primary osteoarthritis, left hand (principal); M19.041 Primary osteoarthritis, right hand; M06.4 Inflammatory polyarthropathy
CPT/HCPCS: 73130